=== PATIENT | female | born 1990 | race African-American/Black ===

== ENCOUNTER 2016-11-17 20:33 | Emergency (ER) | payer OTHER ==
[2016-11-17 21:11] VITALS: RESP 18
--- NOTE | 2016-11-17 22:32 | XR ---
EXAMINATION TYPE: XR chest 2V DATE OF EXAM: 11/17/2016 10:18 PM COMPARISON: 09/01/2010 HISTORY: Cough and congestion TECHNIQUE: Frontal and lateral views of the chest are obtained. FINDINGS: Heart and mediastinum are normal. Lungs are clear. Diaphragm is normal. Bony thorax and so ft tissues appear normal. IMPRESSION: Normal chest. No change.
[2016-11-17] MEDS ORDERED: AZITHROMYCIN 250 MG TAB PO STA (22:41)
--- NOTE | 2016-11-17 22:42 | ED ---
General Adult HPI - General Chief complaint: Upper Respiratory Infection Stated complaint: cough,vomiting Time Seen by Provider: 11/17/16 21:36 Source: patient, RN notes reviewed Mode of arrival: ambulatory - History of Present Illness Initial comments: This is a 26-year-old female with a come chief complaint of productive sounding cough. She had nausea vomiting and diarrhea yesterday. Denies fever. Denies pain. - Related Data Home Medications Medication Instructions Recorded Confirmed Pnv with Ca,No.72/Iron/FA [Pnv 1 tab PO DAILY 08/03/16 10/14/16 Plus Multivit Tab] Previous Rx's Medication Instructions Recorded Acetaminophen-Codeine 300-30mg 1 tab PO Q4H PRN #30 tablet 10/18/16 [Tylenol #3] Ibuprofen [Motrin] 600 mg PO Q6HR PRN #30 tab 10/18/16 Azithromycin [Zithromax Z-pack] 250 mg PO DIRECTED #6 tab 11/17/16 Allergies Allergy/AdvReac Type Severity Reaction Status Date / Time sulfamethoxazole Allergy Unknown Verified 11/17/16 21:11 [From Bactrim] trimethoprim [From Bactrim] Allergy Unknown Verified 11/17/16 21:11 Review of Systems ROS Statement: Those systems with pertinent positive or pertinent negative responses have been documented in the HPI. Review of systems. No headache or visual acuity changes she does have a productive sounding cough. No nausea vomiting stopped yesterday she has had one episode of diarrhea today. No skin rashes. No pain. All systems otherwise reviewed were negative. Past medical problems none. Surgery last month. Family history includes a sister with breast cancer and grandfather brain liver cancer. Uncle recently of another cancer of unknown type. Patient has ALLERGIES to sulfa drugs. She does smoke strongly encouraged to stop. Denies alcohol use ROS Other: All systems not noted in ROS Statement are negative. Past Medical History Past Medical History: No Reported History History of Any Multi-Drug Resistant Organisms: None Reported Additional Past Surgical History / Comment(s): cyst on wrist Past Psychological History: No Psychological Hx Reported Smoking Status: Current every day smoker Past Alcohol Use History: None Reported Past Drug Use History: None Reported - Past Family History Mother Family Medical History: No Reported History General Exam - General Exam Comments Initial Comments: General: The patient is awake and alert, raspy productive sounding cough. Vital signs temp 97.9 pulse 79 respiratory rate 18 pulse ox on percent room air blood pressure 110/80 Eye: Pupils are equal, round and reactive to light, extra-ocular movements are intact ; there is normal conjunctiva bilaterally. No signs of icterus. Ears, nose, mouth and throat: There are moist mucous membranes and no oral lesions. Neck: The neck is supple, there is no tenderness . Cardiovascular: There is a regular rate and rhythm. No murmur, rub or gallop is appreciated. Respiratory: Rough sounding lungs. Rare wheeze. No rales. Gastrointestinal: No abdominal or back pain. Musculoskeletal: Skin: Skin is warm and dry and no rashes or lesions are noted. Course Vital Signs 11/17/16 21:08 Temperature 97.9 F Pulse Rate 79 Respiratory 18 Rate Blood Pressure 110/80 O2 Sat by Pulse 100 Oximetry Medical Decision Making - Medical Decision Making The patient be placed on a Z-Sachin for her upper respiratory tractbronchitis. Told increase her fluids. And use Pepto-Bismol for loose stool. Disposition Clinical Impression: URI (upper respiratory infection) Disposition: HOME SELF-CARE Condition: Fair Instructions: Upper Respiratory Infection (ED) Additional Instructions: Increase fluids. Use Tylenol for fever or pain. Taking complete Z-Sachin until completed follow-up with family physician as needed Prescriptions: Azithromycin [Zithromax Z-pack] 250 mg PO DIRECTED #6 tab Time of Disposition: 22:42
[2016-11-17 22:43] VITALS: BP 126/62; PULSE 76; TEMP 98.3
== END 2016-11-17 23:20 | disposition home or self-care (01) ==
LOC: EC 20:33
DX: J06.9 Acute upper respiratory infection, unspecified (principal); R19.7 Diarrhea, unspecified; F17.200 Nicotine dependence, unspecified, uncomplicated; Z88.1 Allergy status to other antibiotic agents; Z88.2 Allergy status to sulfonamides
CPT/HCPCS: 71020; 99283

== ENCOUNTER 2019-03-09 23:48 | Emergency (ER) | payer OTHER ==
[2019-03-10 00:05] VITALS: RESP 18
[2019-03-10] MEDS ORDERED: SODIUM CHLORIDE 0.9% 1,000 ML IV STA (00:33)
[2019-03-10 00:45] LABS: Appearance,Urine Cloudy (Clear); Bacteria,Urine Rare /hpf; Bilirubin,Urine Negative (Negative); Blood,Urine Negative (Negative); Color,Urine Yellow; Glucose,Urine (UA) Negative (Negative); Ketones,Urine Negative (Negative); Leukocyte Esterase,Urine Large (Negative); Mucus,Urine Rare /hpf; Nitrite,Urine Negative (Negative); PH, Urine 5.5 (5.0-8.0); Protein,Urine Negative (Negative); RBC,Urine 5 /hpf (0-5); Specific Gravity,Urine 1.026 (1.001-1.035); Squamous Epithelial Cell,Urine 8 /hpf (0-4); Urobilinogen,Urine <2.0 mg/dL (<2.0); WBC,Urine 1 /hpf (0-5)
[2019-03-10 00:49] LABS: Basophils % (A) 0 %; Eosinophils # (A) 0.5 k/uL (0-0.7); Eosinophils % (A) 5 %; HCT 36.4 % (34.0-46.0); HGB 11.9 gm/dL (11.4-16.0); Lymphocytes # (A) 3.9 k/uL (1.0-4.8); Lymphocytes % (A) 40 %; MCH 28.4 pg (25.0-35.0); MCHC 32.8 g/dL (31.0-37.0); MCV 86.5 fL (80.0-100.0); Mean Platelet Volume 7.2; Monocytes # (A) 0.6 k/uL (0-1.0); Monocytes % (A) 6 %; Neutrophils # (A) 4.6 k/uL (1.3-7.7); Neutrophils % (A) 47 %; Platelet Count 283 k/uL (150-450); RDW 13.6 % (11.5-15.5); WBC 9.8 k/uL (3.8-10.6)
[2019-03-10 00:56] LABS: ALT 22 U/L (9-52); AST 21 U/L (14-36); Albumin 3.8 g/dL (3.5-5.0); Alkaline Phosphatase 51 U/L (38-126); Amylase 56 U/L (30-110); Anion Gap 4 mmol/L; Blood Urea Nitrogen 12 mg/dL (7-17); Calcium 9.6 mg/dL (8.4-10.2); Carbon Dioxide 25 mmol/L (22-30); Chloride 109 mmol/L (98-107); Glucose 78 mg/dL (74-99); Lipase 125 U/L (23-300); Potassium 4.1 mmol/L (3.5-5.1); Sodium 138 mmol/L (137-145); Total Bilirubin 0.2 mg/dL (0.2-1.3); Total Protein 6.9 g/dL (6.3-8.2)
--- NOTE | 2019-03-10 01:31 | ED ---
Abdominal Pain HPI - General Chief Complaint: Abdominal Pain Stated Complaint: Abd Pain Time Seen by Provider: 03/10/19 00:23 Source: patient Mode of arrival: ambulatory - History of Present Illness Initial Comments: 28-year-old female patient presents to the emergency department for evaluation of suprapubic abdominal discomfort, urinary frequency, and fatigue. She describes the pain in her abdomen as a mild cramping. She denies hematuria. Patient states she's had urinary tract infection the past and believes she may have another. She denies any fever, chills, nausea, vomiting, or flank pain. She denies any abnormal vaginal bleeding or discharge. Denies concern for sexu ally transmitted infections. She does not believe she is . She denies any constipation, diarrhea, hematochezia, melena, or hematemesis. Patient denies any recent rash, shortness breath, chest pain, back pain, numbness, tingling, dizziness, weakness, headache, visual changes, or any other complaints. - Related Data Home Medications Medication Instructions Recorded Confirmed Pnv,Calcium 72/Iron/Folic Acid 1 tab PO DAILY 08/03/16 10/14/16 [Pnv Plus Multivit Tab] Previous Rx's Medication Instructions Recorded Acetaminophen-Codeine 300-30mg 1 tab PO Q4H PRN #30 tablet 10/18/16 [Tylenol #3] Ibuprofen [Motrin] 600 mg PO Q6HR PRN #30 tab 10/18/16 Azithromycin [Zithromax Z-pack] 250 mg PO DIRECTED #6 tab 11/17/16 Cephalexin [Keflex] 500 mg PO Q6HR 3 Days #12 cap 03/10/19 Allergies Allergy/AdvReac Type Severity Reaction Status Date / Time sulfamethoxazole Allergy Unknown Verified 11/17/16 21:11 [From Bactrim] trimethoprim [From Bactrim] Allergy Unknown Verified 11/17/16 21:11 Review of Systems ROS Statement: Those systems with pertinent positive or pertinent negative responses have been documented in the HPI. ROS Other: All systems not noted in ROS Statement are negative. Past Medical History Past Medical History: No Reported History History of Any Multi-Drug Resistant Organisms: None Reported Past Surgical History: Section Additional Past Surgical History / Comment(s): cyst on wrist Past Psychological History: No Psychological Hx Reported Smoking Status: Current every day smoker Past Alcohol Use History: None Reported Past Drug Use History: None Reported - Past Family History Mother Family Medical History: No Reported History General Exam General appearance: alert, in no apparent distress, other (Physical well- developed, well-nourished adult female patient in no acute distress. Vital signs upon presentation are temperature 98.4F, pulse 88, respirations 18, blood pressure 126/78, pulse ox 98% on room air.) Eye exam: Present: normal appearance, PERRL, EOMI. Absent: scleral icterus, conjunctival injection, periorbital swelling ENT exam: Present: normal exam, normal oropharynx, mucous membranes moist Respiratory exam: Present: normal lung sounds bilaterally. Absent: respiratory distress, wheezes, rales, rhonchi, stridor Cardiovascular Exam: Present: regular rate, normal rhythm, normal heart sounds. Absent: systolic murmur, diastolic murmur, rubs, gallop, clicks GI/Abdominal exam: Present: soft, normal bowel sounds. Absent: distended, tenderness, guarding, rebound, rigid Back exam: Present: normal inspection. Absent: CVA tenderness (R), CVA tenderness (L) Neurological exam: Present: alert, oriented X3, CN II-XII intact Psychiatric exam: Present: normal affect, normal mood Skin exam: Present: warm, dry, intact, normal color. Absent: rash Course Vital Signs 03/10/19 03/10/19 00:00 01:45 Temperature 98.4 F 97.2 F L Pulse Rate 88 82 Respiratory 18 18 Rate Blood Pressure 126/78 123/60 O2 Sat by Pulse 98 99 Oximetry Medical Decision Making - Medical Decision Making 28-year-old female patient presents to the emergency department today for evaluation of suprapubic cramping, urinary frequency, and fatigue. Physical examination is relatively unremarkable. No abdominal tenderness, abdomen is soft. She is afebrile, vital signs. Labs reviewed and did reveal positive urinary test. She did have rare bacteria. I did discuss findings and results with the patient. Did discuss her symptoms are most likely related to . She'll be treated for asymptomatic bacteriuria. She is instructed to follow-up with her primary care physician for recheck in 1-2 days. She is instructed to follow-up with the PARKING TECHNICIAN for recheck as soon as possible. Return parameters were discussed in detail. She verbalizes understanding and agrees with this plan. - Lab Data Result diagrams: 03/10/19 00:34 03/10/19 00:34 Lab Results 03/10/19 03/10/19 03/10/19 Range/Units 00:23 00:23 00:34 WBC (3.8-10.6) k/uL RBC (3.80-5.40) m/uL Hgb (11.4-16.0) gm/dL Hct (34.0-46.0) % MCV (80.0-100.0) fL MCH (25.0-35.0) pg MCHC (31.0-37.0) g/dL RDW (11.5-15.5) % Plt Count (150-450) k/uL Neutrophils % % Lymphocytes % % Monocytes % % Eosinophils % % Basophils % % Neutrophils # (1.3-7.7) k/uL Lymphocytes # (1.0-4.8) k/uL Monocytes # (0-1.0) k/uL Eosinophils # (0-0.7) k/uL Basophils # (0-0.2) k/uL Sodium 138 (137-145) mmol/L Potassium 4.1 (3.5-5.1) mmol/L Chloride 109 H (98-107) mmol/L Carbon Dioxide 25 (22-30) mmol/L Anion Gap 4 mmol/L BUN 12 (7-17) mg/dL Creatinine 0.69 (0.52-1.04) mg/dL Est GFR (CKD-EPI)AfAm >90 (>60 ml/min/1.73 sqM) Est GFR (CKD-EPI)NonAf >90 (>60 ml/min/1.73 sqM) Glucose 78 (74-99) mg/dL Calcium 9.6 (8.4-10.2) mg/dL Total Bilirubin 0.2 (0.2-1.3) mg/dL AST 21 (14-36) U/L ALT 22 (9-52) U/L Alkaline Phosphatase 51 (38-126) U/L Total Protein 6.9 (6.3-8.2) g/dL Albumin 3.8 (3.5-5.0) g/dL Amylase 56 (30-110) U/L Lipase 125 (23-300) U/L Urine Color Yellow Urine Appearance Cloudy H (Clear) Urine pH 5.5 (5.0-8.0) Ur Specific [place] 1.026 (1.001-1.035) Urine Protein Negative (Negative) Urine Glucose (UA) Negative (Negative) Urine Ketones Negative (Negative) Urine Blood Negative (Negative) Urine Nitrite Negative (Negative) Urine Bilirubin Negative (Negative) Urine Urobilinogen <2.0 (<2.0) mg/dL Ur Leukocyte Esterase Large H (Negative) Urine RBC 5 (0-5) /hpf Urine WBC 1 (0-5) /hpf Ur Squamous Epith Cells 8 H (0-4) /hpf Urine Bacteria Rare H (None) /hpf Urine Mucus Rare H (None) /hpf Urine HCG, Qual Detected (Not Detectd) 03/10/19 Range/Units 00:34 WBC 9.8 (3.8-10.6) k/uL RBC 4.20 (3.80-5.40) m/uL Hgb 11.9 (11.4-16.0) gm/dL Hct 36.4 (34.0-46.0) % MCV 86.5 (80.0-100.0) fL MCH 28.4 (25.0-35.0) pg MCHC 32.8 (31.0-37.0) g/dL RDW 13.6 (11.5-15.5) % Plt Count 283 (150-450) k/uL Neutrophils % 47 % Lymphocytes % 40 % Monocytes % 6 % Eosinophils % 5 % Basophils % 0 % Neutrophils # 4.6 (1.3-7.7) k/uL Lymphocytes # 3.9 (1.0-4.8) k/uL Monocytes # 0.6 (0-1.0) k/uL Eosinophils # 0.5 (0-0.7) k/uL Basophils # 0.0 (0-0.2) k/uL Sodium (137-145) mmol/L Potassium (3.5-5.1) mmol/L Chloride (98-107) mmol/L Carbon Dioxide (22-30) mmol/L Anion Gap mmol/L BUN (7-17) mg/dL Creatinine (0.52-1.04) mg/dL Est GFR (CKD-EPI)AfAm (>60 ml/min/1.73 sqM) Est GFR (CKD-EPI)NonAf (>60 ml/min/1.73 sqM) Glucose (74-99) mg/dL Calcium (8.4-10.2) mg/dL Total Bilirubin (0.2-1.3) mg/dL AST (14-36) U/L ALT (9-52) U/L Alkaline Phosphatase (38-126) U/L Total Protein (6.3-8.2) g/dL Albumin (3.5-5.0) g/dL Amylase (30-110) U/L Lipase (23-300) U/L Urine Color Urine Appearance (Clear) Urine pH (5.0-8.0) Ur Specific [place] (1.001-1.035) Urine Protein (Negative) Urine Glucose (UA) (Negative) Urine Ketones (Negative) Urine Blood (Negative) Urine Nitrite (Negative) Urine Bilirubin (Negative) Urine Urobilinogen (<2.0) mg/dL Ur Leukocyte Esterase (Negative) Urine RBC (0-5) /hpf Urine WBC (0-5) /hpf Ur Squamous Epith Cells (0-4) /hpf Urine Bacteria (None) /hpf Urine Mucus (None) /hpf Urine HCG, Qual (Not Detectd) Disposition Clinical Impression: Early stage of , Asymptomatic bacteriuria Disposition: HOME SELF-CARE Condition: Good Instructions (If sedation given, give patient instructions): Abdominal Pain in (ED) Additional Instructions: Follow up with OBGYN as soon as possible. Return to the emergency department for any new, worsening, or concerning symptoms. Prescriptions: Cephalexin [Keflex] 500 mg PO Q6HR 3 Days #12 cap Is patient prescribed a controlled substance at d/c from ED?: No Referrals: None,Stated [Primary Care Provider] - 1-2 days Time of Disposition: 01:30
[2019-03-10] MEDS ORDERED: CEPHALEXIN 500MG STARTER PACK 4 CAP BTL PO STA (01:40)
[2019-03-10 01:48] VITALS: BP 123/60; PULSE 82; TEMP 97.2
== END 2019-03-10 01:50 | disposition home or self-care (01) ==
LOC: EC 23:48
DX: O23.90 Unspecified genitourinary tract infection in pregnancy, unspecified trimester (principal); R82.71 Bacteriuria; O99.330 Smoking (tobacco) complicating pregnancy, unspecified trimester; F17.200 Nicotine dependence, unspecified, uncomplicated; Z3A.00 Weeks of gestation of pregnancy not specified; Z88.1 Allergy status to other antibiotic agents; Z88.2 Allergy status to sulfonamides
CPT/HCPCS: 36415; 80053; 81001; 81025; 82150; 83690; 85025; 96360; 99284

== ENCOUNTER 2019-03-15 17:52 | Emergency (ER) | payer OTHER ==
[2019-03-15 19:01] LABS: Appearance,Urine Clear (Clear); Bilirubin,Urine Negative (Negative); Blood,Urine Small (Negative); Color,Urine Yellow; Glucose,Urine (UA) Negative (Negative); Ketones,Urine Negative (Negative); Leukocyte Esterase,Urine Negative (Negative); Mucus,Urine Rare /hpf; Nitrite,Urine Negative (Negative); Protein,Urine Negative (Negative); Specific Gravity,Urine 1.019 (1.001-1.035); Squamous Epithelial Cell,Urine 1 /hpf (0-4); Urobilinogen,Urine <2.0 mg/dL (<2.0); WBC,Urine 2 /hpf (0-5)
[2019-03-15 19:03] LABS: Basophils % (A) 0 %; Eosinophils # (A) 0.3 k/uL (0-0.7); Eosinophils % (A) 4 %; HCT 36.5 % (34.0-46.0); HGB 11.8 gm/dL (11.4-16.0); Lymphocytes % (A) 37 %; MCHC 32.4 g/dL (31.0-37.0); MCV 86.3 fL (80.0-100.0); Monocytes # (A) 0.5 k/uL (0-1.0); Monocytes % (A) 7 %; Neutrophils # (A) 4.1 k/uL (1.3-7.7); Neutrophils % (A) 49 %; Platelet Count 338 k/uL (150-450); RBC 4.23 m/uL (3.80-5.40); RDW 14.1 % (11.5-15.5); WBC 8.3 k/uL (3.8-10.6)
[2019-03-15 19:04] LABS: ALT 26 U/L (9-52); AST 20 U/L (14-36); Albumin 3.7 g/dL (3.5-5.0); Alkaline Phosphatase 45 U/L (38-126); Anion Gap 7 mmol/L; Blood Urea Nitrogen 12 mg/dL (7-17); Calcium 9.3 mg/dL (8.4-10.2); Carbon Dioxide 22 mmol/L (22-30); Chloride 109 mmol/L (98-107); Glucose 84 mg/dL (74-99); Potassium 4.5 mmol/L (3.5-5.1); Sodium 138 mmol/L (137-145); Total Bilirubin 0.3 mg/dL (0.2-1.3); Total Protein 6.8 g/dL (6.3-8.2)
--- NOTE | 2019-03-15 19:14 | ED ---
Abdominal Pain HPI - General Chief Complaint: Abdominal Pain Stated Complaint: 7 wks preg/vaginal bleeding Time Seen by Provider: 03/15/19 18:09 Source: patient, RN notes reviewed, old records reviewed Mode of arrival: ambulatory Limitations: no limitations - History of Present Illness Initial Comments: Patient is a 28-year-old female who presents emergency department today for evaluation for possible miscarriage. Patient started to have vaginal bleeding today after having intercourse. Patient states that it was a significant amount of blood at that time. Patient states that she is a 1 female. Her OUTSIDE PLANT TECHNICIAN is Dr. Henderson. She states she is approximately 7 weeks . She states she found she was when she came to the ER for abdominal pain 3 days ago. Patient states that she has some upper discomfort and cramping but denies any lower quadrant pain. Patient states that she has had no changes in urination or bowel habits. - Related Data Home Medications Medication Instructions Recorded Confirmed Cephalexin [Keflex] 500 mg PO TID 03/15/19 03/15/19 Allergies Allergy/AdvReac Type Severity Reaction Status Date / Time sulfamethoxazole Allergy Unknown Verified 03/15/19 18:10 [From Bactrim] trimethoprim [From Bactrim] Allergy Unknown Verified 03/15/19 18:10 Review of Systems ROS Statement: Those systems with pertinent positive or pertinent negative responses have been documented in the HPI. ROS Other: All systems not noted in ROS Statement are negative. Past Medical History Past Medical History: No Reported History History of Any Multi-Drug Resistant Organisms: None Reported Past Surgical History: Section Additional Past Surgical History / Comment(s): cyst on wrist Past Psychological History: No Psychological Hx Reported Smoking Status: Current every day smoker Past Alcohol Use History: None Reported Past Drug Use History: None Reported - Past Family History Mother Family Medical History: No Reported History General Exam - General Exam Comments Initial Comments: Pleasant 28-year-old female. Alert and oriented. No distress. Limitations: no limitations General appearance: alert, in no apparent distress Head exam: Present: atraumatic, normocephalic, normal inspection Eye exam: Present: normal appearance, PERRL, EOMI. Absent: scleral icterus, conjunctival injection, periorbital swelling ENT exam: Present: normal exam, mucous membranes moist Neck exam: Present: normal inspection. Absent: tenderness, meningismus, lymphadenopathy Respiratory exam: Present: normal lung sounds bilaterally. Absent: respiratory distress, wheezes, rales, rhonchi, stridor Cardiovascular Exam: Present: regular rate, normal rhythm, normal heart sounds. Absent: systolic murmur, diastolic murmur, rubs, gallop, clicks GI/Abdominal exam: Present: soft, normal bowel sounds. Absent: distended, tend erness, guarding, rebound, rigid External exam: Present: normal external exam Speculum exam: Present: normal speculum exam, vaginal bleeding (Dry vaginal blood). Absent: cervical discharge By manual exam: Present: normal by manual exam. Absent: cervical motion tenderness, adnexal tenderness Extremities exam: Present: normal inspection, full ROM, normal capillary refill. Absent: tenderness, pedal edema, joint swelling, calf tenderness Back exam: Present: normal inspection Neurological exam: Present: alert, oriented X3, CN II-XII intact Psychiatric exam: Present: normal affect, normal mood Skin exam: Present: warm, dry, intact, normal color. Absent: rash Course Vital Signs 03/15/19 17:58 Temperature 98.1 F Pulse Rate 83 Respiratory 18 Rate Blood Pressure 105/70 O2 Sat by Pulse 99 Oximetry Medical Decision Making - Medical Decision Making 28-year-old female female proximally 7 weeks based on last nausea. Presents today for vaginal bleeding after intercourse. Patient's ultrasound shows single live intrauterine gestation. Patient's Rh is positive. She is AB+ blood type. Pelvic exam did show some minimal dry blood. Discussed that symptoms are likely due to recent intercourse. Discussed that she should have pelvic rest and follow-up with her OUTSIDE PLANT TECHNICIAN. All questions answered and return parameters were discussed. Started on prenatals. - Lab Data Result diagrams: 03/15/19 18:34 03/15/19 18:34 Lab Results 03/15/19 03/15/19 03/15/19 Range/Units 18:34 18:34 18:34 WBC 8.3 (3.8-10.6) k/uL RBC 4.23 (3.80-5.40) m/uL Hgb 11.8 (11.4-16.0) gm/dL Hct 36.5 (34.0-46.0) % MCV 86.3 (80.0-100.0) fL MCH 28.0 (25.0-35.0) pg MCHC 32.4 (31.0-37.0) g/dL RDW 14.1 (11.5-15.5) % Plt Count 338 (150-450) k/uL Neutrophils % 49 % Lymphocytes % 37 % Monocytes % 7 % Eosinophils % 4 % Basophils % 0 % Neutrophils # 4.1 (1.3-7.7) k/uL Lymphocytes # 3.0 (1.0-4.8) k/uL Monocytes # 0.5 (0-1.0) k/uL Eosinophils # 0.3 (0-0.7) k/uL Basophils # 0.0 (0-0.2) k/uL PT (9.0-12.0) sec INR (<1.2) APTT (22.0-30.0) sec Sodium 138 (137-145) mmol/L Potassium 4.5 (3.5-5.1) mmol/L Chloride 109 H (98-107) mmol/L Carbon Dioxide 22 (22-30) mmol/L Anion Gap 7 mmol/L BUN 12 (7-17) mg/dL Creatinine 0.63 (0.52-1.04) mg/dL Est GFR (CKD-EPI)AfAm >90 (>60 ml/min/1.73 sqM) Est GFR (CKD-EPI)NonAf >90 (>60 ml/min/1.73 sqM) Glucose 84 (74-99) mg/dL Calcium 9.3 (8.4-10.2) mg/dL Total Bilirubin 0.3 (0.2-1.3) mg/dL AST 20 (14-36) U/L ALT 26 (9-52) U/L Alkaline Phosphatase 45 (38-126) U/L Total Protein 6.8 (6.3-8.2) g/dL Albumin 3.7 (3.5-5.0) g/dL Urine Color Urine Appearance (Clear) Urine pH (5.0-8.0) Ur Specific [place] (1.001-1.035) Urine Protein (Negative) Urine Glucose (UA) (Negative) Urine Ketones (Negative) Urine Blood (Negative) Urine Nitrite (Negative) Urine Bilirubin (Negative) Urine Urobilinogen (<2.0) mg/dL Ur Leukocyte Esterase (Negative) Urine WBC (0-5) /hpf Ur Squamous Epith Cells (0-4) /hpf Urine Mucus (None) /hpf Urine HCG, Qual (Not Detectd) Blood Type B Positive Blood Type Recheck No 03/15/19 03/15/19 03/15/19 Range/Units 18:34 18:34 18:34 WBC (3.8-10.6) k/uL RBC (3.80-5.40) m/uL Hgb (11.4-16.0) gm/dL Hct (34.0-46.0) % MCV (80.0-100.0) fL MCH (25.0-35.0) pg MCHC (31.0-37.0) g/dL RDW (11.5-15.5) % Plt Count (150-450) k/uL Neutrophils % % Lymphocytes % % Monocytes % % Eosinophils % % Basophils % % Neutrophils # (1.3-7.7) k/uL Lymphocytes # (1.0-4.8) k/uL Monocytes # (0-1.0) k/uL Eosinophils # (0-0.7) k/uL Basophils # (0-0.2) k/uL PT 9.8 (9.0-12.0) sec INR 0.9 (<1.2) APTT 24.4 (22.0-30.0) sec Sodium (137-145) mmol/L Potassium (3.5-5.1) mmol/L Chloride (98-107) mmol/L Carbon Dioxide (22-30) mmol/L Anion Gap mmol/L BUN (7-17) mg/dL Creatinine (0.52-1.04) mg/dL Est GFR (CKD-EPI)AfAm (>60 ml/min/1.73 sqM) Est GFR (CKD-EPI)NonAf (>60 ml/min/1.73 sqM) Glucose (74-99) mg/dL Calcium (8.4-10.2) mg/dL Total Bilirubin (0.2-1.3) mg/dL AST (14-36) U/L ALT (9-52) U/L Alkaline Phosphatase (38-126) U/L Total Protein (6.3-8.2) g/dL Albumin (3.5-5.0) g/dL Urine Color Yellow Urine Appearance Clear (Clear) Urine pH 6.0 (5.0-8.0) Ur Specific [place] 1.019 (1.001-1.035) Urine Protein Negative (Negative) Urine Glucose (UA) Negative (Negative) Urine Ketones Negative (Negative) Urine Blood Small H (Negative) Urine Nitrite Negative (Negative) Urine Bilirubin Negative (Negative) Urine Urobilinogen <2.0 (<2.0) mg/dL Ur Leukocyte Esterase Negative (Negative) Urine WBC 2 (0-5) /hpf Ur Squamous Epith Cells 1 (0-4) /hpf Urine Mucus Rare H (None) /hpf Urine HCG, Qual Detected (Not Detectd) Blood Type Blood Type Recheck - Radiology Data Single live intrauterine gestation as confirmed being crown-rump length is 0.5 cm corresponding with 6 weeks and 1 day old fetus. Disposition Clinical Impression: Vaginal bleeding during Disposition: HOME SELF-CARE Condition: Good Instructions (If sedation given, give patient instructions): Threatened Miscarriage (ED) Additional Instructions: Patient advised to follow-up with your primary care physician and OUTSIDE PLANT TECHNICIAN. Patient should've pelvic rest, no intercourse. Return to emergency department if any alarming signs or symptoms occur. Is patient prescribed a controlled substance at d/c from ED?: No Referrals: None,Stated [Primary Care Provider] - 1-2 days Saman Rojas DO [Doctor of Osteopathic Medicine] - 1-2 days Time of Disposition: 19:53
[2019-03-15 19:30] LABS: INR 0.9 (<1.2); Partial Thromboplastin Time 24.4 sec (22.0-30.0); Prothrombin Time 9.8 sec (9.0-12.0)
--- NOTE | 2019-03-15 19:36 | US ---
EXAMINATION TYPE: Transabdominal DATE OF EXAM: 03/15/2019 7:23 PM COMPARISON: NONE CLINICAL HISTORY: pain. Cramping and bleeding. Positive beta-hCG test. EXAM PERFORMED: Transvaginal (TV) and Transabdominal (TA) EXAM MEASUREMENTS: GESTATIONAL AGE / DATING Physician Established: Not yet established ( weeks Dates by LMP: (5 weeks/6 days) EDC: 11/09/2019 Dates by First Scan: No previous this is first scan Dates by Current Scan for: (6 weeks/1 days) EDC: 11/07/2019 MATERNAL ANATOMY Uterus: 8.2 x 5.2 x 7.3 cm Right Ovary: 2.5 x 2.0 x 1.9cm Left Ovary: Obscured by bowel gas. Post CDS / Adnexa: wnl Presence of free fluid: yes Presence of corpus luteal cyst: yes right 2.1 x 1.3 x 1.3cm Presence of subchorionic bleed: no GESTATION / SURVEY CRL: 0.48cm (6 weeks/1 days) Yolk Sac (normal less than 6mm): 3mm Heart Rate: 129 bpm Rhythm: Normal IUP: Viable IUP Beta HcG (if available): Not available at this time Single live intrauterine gestation is present as gestational sac, yolk sac, and pole are seen. No free fluid is seen in pelvic cul-de-sac. Right ovary is seen. Left ovary is not clearly identified. Within right ovary there is 2.1 cm rim hyp ervascular oval lesion felt to reflect corpus luteal cyst. No extraovarian adnexal masses are present . IMPRESSION: Single live intrauterine gestation is confirmed, mean crown-rump length is 0.5 cm corresponding to 6 week 1 day old fetus.
[2019-03-15 19:58] LABS: HCG,Quantitative Serum 25007.8 mIU/mL
[2019-03-15 20:27] VITALS: BP 112/58; PULSE 76; RESP 20; TEMP 100.1
[2019-03-16 16:06] LABS: C. trachomatis,PCR Negative (Neg,Equiv); Chlamydia trachomatis Source Vagina
[2019-03-16 16:09] LABS: N. gonorrhoeae,PCR Negative (Neg,Equiv); Neisseria Source Vagina
== END 2019-03-15 20:27 | disposition home or self-care (01) ==
LOC: EC 17:52
DX: O20.9 Hemorrhage in early pregnancy, unspecified (principal); O99.331 Smoking (tobacco) complicating pregnancy, first trimester; F17.200 Nicotine dependence, unspecified, uncomplicated; Z3A.01 Less than 8 weeks gestation of pregnancy; Z88.1 Allergy status to other antibiotic agents; Z88.2 Allergy status to sulfonamides
CPT/HCPCS: 36415; 76801; 76817; 80053; 81001; 81025; 84702; 85025; 85610; 85730; 86900; 86901; 87070; 87205; 87491; 87591; 87808; 99284

== ENCOUNTER → 2019-03-19 | Outpatient (CLI) | payer SELFPAY | END | disposition home or self-care (01) | LOC: LABWHC1 17:19 | PROVIDERS: ATTEND Physician Assistant Medical | DX: O20.0 Threatened abortion (principal) | CPT/HCPCS: 36415; 84702 ==

== ENCOUNTER 2019-03-24 19:45 | Emergency (ER) | payer OTHER ==
[2019-03-24 19:54] VITALS: RESP 18
[2019-03-24] MEDS ORDERED: SODIUM CHLORIDE 0.9% 500 ML 500 ML IV ONE (19:59)
[2019-03-24 21:15] LABS: Basophils % (A) 0 %; Eosinophils # (A) 0.4 k/uL (0-0.7); Eosinophils % (A) 4 %; HGB 11.6 gm/dL (11.4-16.0); Lymphocytes # (A) 3.3 k/uL (1.0-4.8); Lymphocytes % (A) 32 %; MCHC 33.1 g/dL (31.0-37.0); MCV 87.6 fL (80.0-100.0); Mean Platelet Volume 6.8; Monocytes # (A) 0.8 k/uL (0-1.0); Monocytes % (A) 8 %; Neutrophils # (A) 5.6 k/uL (1.3-7.7); Neutrophils % (A) 54 %; Platelet Count 352 k/uL (150-450); RBC 3.99 m/uL (3.80-5.40); RDW 13.4 % (11.5-15.5); WBC 10.4 k/uL (3.8-10.6)
[2019-03-24 21:26] LABS: ALT 24 U/L (9-52); AST 18 U/L (14-36); Albumin 3.7 g/dL (3.5-5.0); Alkaline Phosphatase 52 U/L (38-126); Anion Gap 7 mmol/L; Blood Urea Nitrogen 12 mg/dL (7-17); Calcium 9.6 mg/dL (8.4-10.2); Carbon Dioxide 26 mmol/L (22-30); Chloride 104 mmol/L (98-107); Glucose 66 mg/dL (74-99); Potassium 4.2 mmol/L (3.5-5.1); Sodium 137 mmol/L (137-145); Total Bilirubin 0.3 mg/dL (0.2-1.3)
--- NOTE | 2019-03-24 21:47 | US ---
EXAMINATION TYPE: Transabdominal DATE OF EXAM: 03/24/2019 9:34 PM COMPARISON: NONE CLINICAL HISTORY: pain. Spotting. EXAM PERFORMED: Transvaginal (TV) and Transabdominal (TA) EXAM MEASUREMENTS: GESTATIONAL AGE / DATING Physician Established: (7 weeks/3 days) EDC: 11/07/2019 Dates by LMP: (7 weeks/3 days) EDC: 11/07/2019 Dates by First Scan: (6 weeks/1 days) EDC: 11/07/2019 Dates by Current Scan for: (7 weeks/0 days) EDC: 11/10/2019 MATERNAL ANATOMY Uterus: 11.5 x 5.5 x 7.3 cm Right Ovary: 2.7 x 1.6 x 3.0 cm Left Ovary: 3.0 x 2.8 x 2.5 cm Post CDS / Adnexa: wnl Presence of free fluid: no Presence of corpus luteal cyst: Yes left 2.0 x 2.0 x 1.8cm. Presence of subchorionic bleed: no GESTATION / SURVEY CRL: 0.98cm (7 weeks/0 days) Yolk Sac (normal less than 6mm): 3mm Heart Rate: 148 bpm Rhythm: Normal IUP: Viable IUP Beta HcG (if available): Not available at this time IMPRESSION: Ultrasound gestational age is 7 weeks. No complicating process seen.
--- NOTE | 2019-03-24 21:56 | ED ---
Abdominal Pain HPI - General Chief Complaint: Abdominal Pain Stated Complaint: Abd Pain,Vaginal Bleeding-7 wks Time Seen by Provider: 03/24/19 19:52 Source: patient Mode of arrival: ambulatory Limitations: no limitations - History of Present Illness Initial Comments: 28-year-old female presenting today for chief complaint of vaginal bleeding in . Patient states she is 7 weeks with an upcoming appointment April 07 with her UTILITIES SERVICE INVESTIGATOR. Patient states she has a history of bleeding with this with intercourse. She states she is on pelvic rest. Patient states that today 30 minutes prior to arrival she had light spotting. Patient states she has had some mild abdominal cramping. Patient was concerned and presented for evaluation. Patient denies sexual intercourse today. Patient denies any severe abdominal pain she denies nausea vomiting diarrhea dysuria urgency frequency fever or chills night sweats. Remaining review of systems negative. Upon arrival patient appears wellas acute distress. - Related Data Home Medications Medication Instructions Recorded Confirmed Cephalexin [Keflex] 500 mg PO TID 03/15/19 03/24/19 Allergies Allergy/AdvReac Type Severity Reaction Status Date / Time sulfamethoxazole Allergy Unknown Verified 03/24/19 20:19 [From Bactrim] trimethoprim [From Bactrim] Allergy Unknown Verified 03/24/19 20:19 Review of Systems ROS Statement: Those systems with pertinent positive or pertinent negative responses have been documented in the HPI. ROS Other: All systems not noted in ROS Statement are negative. Past Medical History Past Medical History: No Reported History History of Any Multi-Drug Resistant Organisms: None Reported Past Surgical History: Section Additional Past Surgical History / Comment(s): cyst on wrist, Past Psychological History: No Psychological Hx Reported Smoking Status: Current every day smoker Past Alcohol Use History: None Reported Past Drug Use History: None Reported - Past Family History Mother Family Medical History: No Reported History General Exam - General Exam Comments Initial Comments: General: The patient is awake and alert, in no distress, and does not appear acutely ill. Eye: Pupils are equal, round and reactive to light, extra-ocular movements are intact. No nystagmus. There is normal conjunctiva bilaterally. No signs of icterus. Ears, nose, mouth and throat: There are moist mucous membranes and no oral lesions. Neck: The neck is supple, there is no tenderness or JVD. Cardiovascular: There is a regular rate and rhythm. No murmur, rub or gallop is appreciated. Respiratory: Lungs are clear to auscultation, respirations are non-labored, breath sounds are equal. No wheezes, stridor, rales, or rhonchi Gastrointestinal: Soft, non-distended, non-tender abdomen without masses or organomegaly noted. There is no rebound or guarding present. No CVA tenderness. Bowel sounds are unremarkable. Musculoskeletal: Normal ROM, no tenderness. Strength 5/5. Sensation intact. Pulses equal bilaterally 2+. Neurological: A&O x 3. CN II-XII intact, There are no obvious motor or sensory deficits. Coordination appears grossly intact. Speech is normal. Skin: Skin is warm and dry and no rashes or lesions are noted. Psychiatric: Cooperative, appropriate mood & affect, normal judgment. Limitations: no limitations Course Vital Signs 03/24/19 03/24/19 19:50 22:25 Temperature 99.4 F 98.2 F Pulse Rate 87 77 Respiratory 18 18 Rate Blood Pressure 107/62 123/64 O2 Sat by Pulse 100 110 H Oximetry Medical Decision Making - Medical Decision Making 28-year-old female presenting today for chief complaint of spotting in . Ultrasound revealed viable intrauterine without couple getting process. B+ blood type, no Rhogam indicated. Pt has no pain on exam. Appearing well, hemodynamically stable. Patient states bleeding has subsided. At this time patient most likely has threatened . Patient is to follow- up with UTILITIES SERVICE INVESTIGATOR as scheduled. Return for heavy vaginal bleeding patient is agreeable plan of care as well as discharge. Discussed case attending provider who is agreeable with plan. - Lab Data Result diagrams: 03/24/19 20:45 03/24/19 20:45 Lab Results 03/24/19 03/24/19 03/24/19 Range/Units 20:45 20:45 20:45 WBC 10.4 (3.8-10.6) k/uL RBC 3.99 (3.80-5.40) m/uL Hgb 11.6 (11.4-16.0) gm/dL Hct 35.0 (34.0-46.0) % MCV 87.6 (80.0-100.0) fL MCH 29.0 (25.0-35.0) pg MCHC 33.1 (31.0-37.0) g/dL RDW 13.4 (11.5-15.5) % Plt Count 352 (150-450) k/uL Neutrophils % 54 % Lymphocytes % 32 % Monocytes % 8 % Eosinophils % 4 % Basophils % 0 % Neutrophils # 5.6 (1.3-7.7) k/uL Lymphocytes # 3.3 (1.0-4.8) k/uL Monocytes # 0.8 (0-1.0) k/uL Eosinophils # 0.4 (0-0.7) k/uL Basophils # 0.0 (0-0.2) k/uL Sodium 137 (137-145) mmol/L Potassium 4.2 (3.5-5.1) mmol/L Chloride 104 (98-107) mmol/L Carbon Dioxide 26 (22-30) mmol/L Anion Gap 7 mmol/L BUN 12 (7-17) mg/dL Creatinine 0.61 (0.52-1.04) mg/dL Est GFR (CKD-EPI)AfAm >90 (>60 ml/min/1.73 sqM) Est GFR (CKD-EPI)NonAf >90 (>60 ml/min/1.73 sqM) Glucose 66 L (74-99) mg/dL Calcium 9.6 (8.4-10.2) mg/dL Total Bilirubin 0.3 (0.2-1.3) mg/dL AST 18 (14-36) U/L ALT 24 (9-52) U/L Alkaline Phosphatase 52 (38-126) U/L Total Protein 7.0 (6.3-8.2) g/dL Albumin 3.7 (3.5-5.0) g/dL HCG, Quant 25002.7 mIU/mL Blood Type B Positive Blood Type Recheck ABR ONLY Disposition Clinical Impression: Spotting affecting in first trimester Disposition: HOME SELF-CARE Condition: Good Instructions (If sedation given, give patient instructions): Threatened Miscarriage (ED) Additional Instructions: Please use medication as discussed. Please follow-up with OBGYN as scheduled on 04/07/19. Please return to emergency room if the symptoms increase or worsen or for any other concerns. Is patient prescribed a controlled substance at d/c from ED?: No Referrals: Jean Paul June MD [Primary Care Provider] - 1-2 days Saman Rojas DO [Doctor of Osteopathic Medicine] - 1-2 days Time of Disposition: 21:55
[2019-03-24 22:10] LABS: HCG,Quantitative Serum 66079.7 mIU/mL
[2019-03-24 22:28] VITALS: BP 123/64; PULSE 77; TEMP 98.2
== END 2019-03-24 22:25 | disposition home or self-care (01) ==
LOC: EC 19:45
DX: O26.851 Spotting complicating pregnancy, first trimester (principal); Z67.20 Type B blood, Rh positive; O99.331 Smoking (tobacco) complicating pregnancy, first trimester; F17.200 Nicotine dependence, unspecified, uncomplicated; Z88.2 Allergy status to sulfonamides; Z98.890 Other specified postprocedural states; Z3A.01 Less than 8 weeks gestation of pregnancy
CPT/HCPCS: 36415; 76801; 76817; 80053; 84702; 85025; 86900; 86901; 99284

== ENCOUNTER 2019-05-23 22:53 | Emergency (ER) | payer OTHER ==
[2019-05-23 22:57] VITALS: BP 124/79; PULSE 101; RESP 20; TEMP 99.3
--- NOTE | 2019-05-23 23:04 | ED ---
Female Urogenital HPI - General Chief complaint: Abdominal Pain Stated complaint: Back/Abd Pain, pgt Time Seen by Provider: 05/23/19 23:02 Source: patient, RN notes reviewed, old records reviewed Mode of arrival: ambulatory Limitations: no limitations - History of Present Illness Initial comments: This is a 28-year-old female the ER for evaluation. Patient resents today for evaluation of back pain abdominal pain. Patient concern for urinary tract infection, patient states she believes she may have UTI from sex with her . Patient has mild nausea no vomiting. No fevers. MD Complaint: pelvic pain -: hour(s) Radiation: non-radiating, suprapubic Severity: mild Consistency: constant Improves with: none Worsens with: none Patient : Yes Associated Symptoms: denies other symptoms - Related Data Home Medications Medication Instructions Recorded Confirmed Pua-Fvxu-Mynei Acid 1 cap PO DAILY 05/23/19 05/23/19 [-U Capsule (formulary)] Allergies Allergy/AdvReac Type Severity Reaction Status Date / Time sulfamethoxazole Allergy Nausea & Verified 05/23/19 23:17 [From Bactrim] Vomiting trimethoprim [From Bactrim] Allergy Nausea & Verified 05/23/19 23:17 Vomiting Review of Systems ROS Statement: Those systems with pertinent positive or pertinent negative responses have been documented in the HPI. ROS Other: All systems not noted in ROS Statement are negative. Past Medical History Past Medical History: No Reported History History of Any Multi-Drug Resistant Organisms: None Reported Past Surgical History: Section Additional Past Surgical History / Comment(s): cyst on wrist, Past Psychological History: No Psychological Hx Reported Smoking Status: Current every day smoker Past Alcohol Use History: None Reported Past Drug Use History: None Reported - Past Family History Mother Family Medical History: No Reported History General Exam Limitations: no limitations General appearance: alert, in no apparent distress Head exam: Present: atraumatic, normocephalic, normal inspection Eye exam: Present: normal appearance, PERRL, EOMI. Absent: scleral icterus, conjunctival injection, periorbital swelling ENT exam: Present: normal exam, mucous membranes moist Neck exam: Present: normal inspection. Absent: tenderness, meningismus, lymphadenopathy Respiratory exam: Present: normal lung sounds bilaterally. Absent: respiratory distress, wheezes, rales, rhonchi, stridor Cardiovascular Exam: Present: regular rate, normal rhythm, normal heart sounds. Absent: systolic murmur, diastolic murmur, rubs, gallop, clicks GI/Abdominal exam: Present: soft, normal bowel sounds. Absent: distended, tenderness, guarding, rebound, rigid Extremities exam: Present: normal inspection, full ROM, normal capillary refill. Absent: tenderness, pedal edema, joint swelling, calf tenderness Back exam: Present: normal inspection Neurological exam: Present: alert, oriented X3, CN II-XII intact Psychiatric exam: Present: normal affect, normal mood Skin exam: Present: warm, dry, intact, normal color. Absent: rash Course Vital Signs 05/23/19 22:54 Temperature 99.3 F Pulse Rate 101 H Respiratory 20 Rate Blood Pressure 124/79 O2 Sat by Pulse 100 Oximetry - Reevaluation(s) Reevaluation #1: 05/24/19 00:18 Medical record is reviewed with Reevaluation #2: 05/24/19 00:18 Patient is in no acute distress Medical Decision Making - Medical Decision Making 28 female the ER for evaluation patient was essay for evaluation regarding abdominal pain. Urine is negative ultrasound is negative patient's feeling well. - Lab Data Lab Results 05/23/19 Range/Units 23:04 Urine Color Yellow Urine Appearance Cloudy H (Clear) Urine pH 7.0 (5.0-8.0) Ur Specific [place] 1.027 (1.001-1.035) Urine Protein Trace H (Negative) Urine Glucose (UA) Negative (Negative) Urine Ketones Negative (Negative) Urine Blood Negative (Negative) Urine Nitrite Negative (Negative) Urine Bilirubin Negative (Negative) Urine Urobilinogen 2.0 (<2.0) mg/dL Ur Leukocyte Esterase Large H (Negative) Urine RBC 3 (0-5) /hpf Urine WBC 12 H (0-5) /hpf Ur Squamous Epith Cells 24 H (0-4) /hpf Urine Bacteria Occasional H (None) /hpf Hyaline Casts 4 H (0-2) /lpf Urine Mucus Rare H (None) /hpf Disposition Clinical Impression: Abdominal pain Disposition: HOME SELF-CARE Condition: Good Instructions (If sedation given, give patient instructions): Abdominal Pain in (ED) Is patient prescribed a controlled substance at d/c from ED?: No Referrals: None,Stated [Primary Care Provider] - 1-2 days
[2019-05-23 23:23] LABS: Appearance,Urine Cloudy (Clear); Bacteria,Urine Occasional /hpf; Bilirubin,Urine Negative (Negative); Blood,Urine Negative (Negative); Color,Urine Yellow; Glucose,Urine (UA) Negative (Negative); Hyaline Casts,Urine 4 /lpf (0-2); Ketones,Urine Negative (Negative); Leukocyte Esterase,Urine Large (Negative); Mucus,Urine Rare /hpf; Nitrite,Urine Negative (Negative); Protein,Urine Trace (Negative); RBC,Urine 3 /hpf (0-5); Specific Gravity,Urine 1.027 (1.001-1.035); Squamous Epithelial Cell,Urine 24 /hpf (0-4); WBC,Urine 12 /hpf (0-5)
[2019-05-23] MEDS ORDERED: PYRIDOXINE 50 MG TAB PO STA (23:33)
[2019-05-23] MEDS ORDERED: diphenhydrAMINE 50 MG CAP PO STA (23:33)
[2019-05-23] MEDS ORDERED: ACETAMINOPHEN TAB 500 MG TAB PO STA (23:33)
--- NOTE | 2019-05-24 00:31 | US ---
EXAM: US After First Trimester, Transabdominal CLINICAL HISTORY: ITS.REASON US Reason: Pain TECHNIQUE: Real-time transabdominal obstetrical ultrasound of the maternal pelvis and a second or third trimester with image documentation. COMPARISON: No relevant prior studies available. FINDINGS: Dates by Current Scan: (15 weeks/6 days) EDC: 11/08/2019 SURVEY IUP: Single PLACENTA: Anterior BRENDA: 13.0 cm CERVICAL LENGTH: 3.9 cm BIOMETRY PRESENTATION: Breech BPD: 3.2 cm 15 weeks / 6 days HC: 12.0 cm 16 weeks / 0 days AC: 9.4 cm 15 weeks / 4 days FL: 1.9 cm 15 weeks / 5 days ESTIMATED WEIGHT IN GRAMS: 131.2 grams ESTIMATED WEIGHT IN LBS/OZ: 0 lbs. 5 oz. WEIGHT PERCENTAGE BASED ON ESTABLISHED DATES: 46% HC/AC: 1.28 FL/AC: 20 HEART RATE: 157 bpm IMPRESSION: Single live intrauterine measuring 15 weeks 6 days.
[2019-05-26 15:17] LABS: C. trachomatis,PCR Negative (Neg,Equiv); Chlamydia trachomatis Source Urine
[2019-05-26 15:22] LABS: N. gonorrhoeae,PCR Negative (Neg,Equiv); Neisseria Source Urine
== END 2019-05-24 00:33 | disposition home or self-care (01) ==
LOC: EC 22:53
DX: O99.89 Other specified diseases and conditions complicating pregnancy, childbirth and the puerperium (principal); R10.2 Pelvic and perineal pain; M54.9 Dorsalgia, unspecified; R11.0 Nausea; O99.332 Smoking (tobacco) complicating pregnancy, second trimester; F17.200 Nicotine dependence, unspecified, uncomplicated; Z3A.15 15 weeks gestation of pregnancy; Z88.1 Allergy status to other antibiotic agents; Z88.2 Allergy status to sulfonamides
CPT/HCPCS: 76805; 81001; 87086; 87491; 87591; 99284

== ENCOUNTER → 2019-06-11 | Outpatient (CLI) | payer OTHER ==
[2019-06-11 10:42] LABS: HCT 32.2 % (34.0-46.0); HGB 10.6 gm/dL (11.4-16.0); MCH 29.1 pg (25.0-35.0); MCHC 32.8 g/dL (31.0-37.0); MCV 88.7 fL (80.0-100.0); Mean Platelet Volume 7.1; Platelet Count 327 k/uL (150-450); RBC 3.63 m/uL (3.80-5.40); RDW 14.6 % (11.5-15.5); WBC 12.7 k/uL (3.8-10.6)
[2019-06-11 17:04] LABS: African American GFR (CKD) 144.8 (60.0-200.0)
[2019-06-11 18:40] LABS: HIV 1 AB Non-Reactive (Non-Reactive); HIV AB P24 Non-Reactive (Non-Reactive); HIV P24 AG Non-Reactive (Non-Reactive)
[2019-06-14 09:00] LABS: Alpha Fetoprotein 58.3 ng/mL; Alpha Fetoprotein (M.O.M) 1.62; B-HCG (M.O.M.) 1.97; Gestational Age (days) 2; Human Chorionic Gonadotropin 27.1 IU/mL; Maternal Age at EDD (Yrs) 28; Smoker Yes; Unconjugated Estriol (M.O.M.) 1.02
== END | disposition home or self-care (01) ==
LOC: LABWHC1 08:42
PROVIDERS: ATTEND Obstetrics & Gynecology
DX: Z34.82 Encounter for supervision of other normal pregnancy, second trimester (principal)
CPT/HCPCS: 36415; 82105; 82565; 82677; 82950; 84702; 85027; 86336; 86762; 86780; 86850; 86900; 86901; 87340; 87390

== ENCOUNTER 2019-10-13 14:29 | Outpatient (CLI) | payer OTHER ==
[2019-10-13 15:06] VITALS: PULSE 96; RESP 16; TEMP 98.2
[2019-10-13 15:23] LABS: Basophils % (A) 0 %; Eosinophils # (A) 0.2 k/uL (0-0.7); Eosinophils % (A) 2 %; HCT 29.6 % (34.0-46.0); HGB 9.7 gm/dL (11.4-16.0); Lymphocytes # (A) 2.3 k/uL (1.0-4.8); Lymphocytes % (A) 20 %; MCH 28.8 pg (25.0-35.0); MCHC 32.7 g/dL (31.0-37.0); Monocytes # (A) 0.6 k/uL (0-1.0); Monocytes % (A) 5 %; Neutrophils # (A) 7.9 k/uL (1.3-7.7); Neutrophils % (A) 71 %; Platelet Count 274 k/uL (150-450); RBC 3.36 m/uL (3.80-5.40); RDW 13.7 % (11.5-15.5); WBC 11.2 k/uL (3.8-10.6)
[2019-10-13 15:35] LABS: ALT 14 U/L (9-52); AST 16 U/L (14-36); African American GFR (CKD) >90 (>60 ml/min/1.73 sqM); Blood Urea Nitrogen 8 mg/dL (7-17); LDH 316 U/L (313-618); Non-African American GFR(CKD) >90 (>60 ml/min/1.73 sqM); Uric Acid 5.8 mg/dL (3.7-7.4)
[2019-10-13 15:48] LABS: Appearance,Urine Cloudy (Clear); Bacteria,Urine Occasional /hpf; Bilirubin,Urine Negative (Negative); Blood,Urine Negative (Negative); Color,Urine Yellow; Glucose,Urine (UA) Negative (Negative); Ketones,Urine Trace (Negative); Leukocyte Esterase,Urine Large (Negative); Mucus,Urine Few /hpf; Nitrite,Urine Negative (Negative); Protein,Urine 1+ (Negative); RBC,Urine 2 /hpf (0-5); Specific Gravity,Urine 1.033 (1.001-1.035); Squamous Epithelial Cell,Urine 10 /hpf (0-4); WBC,Urine 5 /hpf (0-5)
[2019-10-13 16:02] VITALS: BP 114/55
--- NOTE | 2019-10-13 19:30 | P.MSEPDOC ---
Presenting Problems - Arrival Data Date of Arrival on Unit: 10/13/19 Time of Arrival on Unit: 14:20 Mode of Transport: Ambulatory - Complaint OB-Reason for Admission/Chief Complaint: PIH Medical History - Information : 2 Para: 1 Term: 1 : 0 Abortions: Spontaneous or Elective: 0 Number of Living Children: 1 - Gestational Age Gestational Age by DADA (wks/days): 36 Weeks and 0 Days - History Complications: Prior Review of Systems - Review of Systems Constitutional: No problems Breast: No problems ENT: No problems Cardiovascular: No problems Respiratory: No problems Gastrointestinal: No problems Genitourinary: No problems Musculoskeletal: No problems Neurological: No problems Skin: No problems Vital Signs - Temperature Temperature: 98.2 F Temperature Source: Oral - Pulse Right Brachial Pulse Rate: 96 Pulse Assessment Method: Pulse Oximetry - Respirations Respiratory Rate: 16 Oxygen Delivery Method: Room Air O2 Sat by Pulse Oximetry: 96 - Blood Pressure Right Arm Blood Pressure: 114/55 Blood Pressure Mean: 74 Blood Pressure Source: Automatic Cuff Medical Screen Scoring (Pre) - Uterine Contractions Frequency: N/A Duration: N/A Intensity: N/A - Maternal Vital Signs Maternal Blood Pressure: N/A Maternal Respirations: N/A - Maternal Trauma Maternal Trauma: N/A - Assessment - Baby A Baseline FHR: 140 Heart Rate - NICHD Category: Category II (Indeterminate) = 3 Position: N/A Station: N/A - Total Score - Baby A Total Score - Baby A: 3 - Total Score - Baby B Total Score - Baby B: 0 - Total Score - Baby C Total Score - Baby C: 0 - Level of Risk - Baby A Level of Risk - Baby A: Low (0-5) - Level of Risk - Baby B Level of Risk - Baby B: Low (0-5) - Level of Risk - Baby C Level of Risk - Baby C: Low (0-5) Physician Notification (Pre) - Physician Notified Physician Notified Date: 10/13/19 Physician Notified Time: 14:55 New Order Received: Yes - Notification Comment Comment: [facility] labs ordered Medical Screen Scoring (Post) - Cervical Exam Dilation: Exam Deferred Effacement: Exam Deferred Membranes: Intact - Uterine Contractions Frequency: N/A Duration: N/A Intensity: N/A - Maternal Vital Signs Maternal Temperature: N/A Maternal Blood Pressure: N/A Signs of Preeclampsia: N/A Maternal Respirations: N/A - Maternal Trauma Maternal Trauma: N/A - Assessment - Baby A Heart Rate: 150 Heart Rate - NICHD Category: Category I (Normal) = 0 NST: Reactive Position: N/A Station: N/A - Total Score Total Score - Baby A: 0 Total Score - Baby B: 0 Total Score - Baby C: 0 - Post Treatment Level of Risk Post Treatment Level of Risk - Baby A: Low (0-5) Post Treatment Level of Risk - Baby B: Low (0-5) Post Treatment Level of Risk - Baby C: Low (0-5) Physician Notification (Post) - Physician Notified Physician Notified Date: 10/13/19 Physician Notified Time: 15:55 Spoke With: Crystal Sebastian Order Received: Yes - Notification Comment Comment: Reviewed labs and pts serial BP; pt to be d/c home, follow up as scheduled. Disposition - Disposition OB Disposition: Discharge to home, Written follow up instructions reviewed Discharge Date: 10/13/19 Discharge Time: 16:00 I agree with the RN Medical Screening Exam: Yes Risk & Benefit of care provided described in d/c instruction: Yes Diagnosis: GESTATIONAL HTN W/O SIGNIFICANT PROTEINURIA, THIRD TRIMESTER
== END 2019-10-13 16:00 | disposition home or self-care (01) ==
LOC: FBPOP 14:29
PROVIDERS: ATTEND Obstetrics & Gynecology
DX: O13.3 Gestational [pregnancy-induced] hypertension without significant proteinuria, third trimester (principal); Z3A.36 36 weeks gestation of pregnancy
CPT/HCPCS: 59025; 82565; 83615; 84450; 84460; 84520; 84550; 85025; 81001; G0463; 99215

== ENCOUNTER 2019-11-03 06:26 | Inpatient (IN) | payer OTHER ==
[2019-11-01 15:20] VITALS: BMI 50.7
[2019-11-03] MEDS ORDERED: LACTATED RINGERS 1,000 ML IV ONE (07:00)
[2019-11-03] MEDS ORDERED: CITRIC ACID-SODIUM CITRATE 15 ML CUP PO ONE (07:00)
[2019-11-03] MEDS ORDERED: ceFAZolin 3 GM in SODIUM CHLORIDE 0.9% 100 ML IVPB ONE (07:00)
[2019-11-03 07:29] LABS: Basophils # (A) 0.3 k/uL (0-0.2); Basophils % (A) 3 %; Eosinophils # (A) 0.3 k/uL (0-0.7); Eosinophils % (A) 3 %; HCT 31.9 % (34.0-46.0); HGB 10.2 gm/dL (11.4-16.0); Lymphocytes # (A) 2.6 k/uL (1.0-4.8); Lymphocytes % (A) 24 %; MCH 27.6 pg (25.0-35.0); MCV 86.3 fL (80.0-100.0); Mean Platelet Volume 8.5; Monocytes # (A) 0.6 k/uL (0-1.0); Monocytes % (A) 5 %; Neutrophils # (A) 6.8 k/uL (1.3-7.7); Neutrophils % (A) 63 %; Platelet Count 269 k/uL (150-450); RDW 14.2 % (11.5-15.5); WBC 10.8 k/uL (3.8-10.6)
[2019-11-03] MEDS ORDERED: NALBUPHINE 10 MG/ML (1 ML AMP) ONE (08:30)
[2019-11-03] MEDS ORDERED: fentaNYL (PF) 50 MCG/ML 2 ML AMP ONE (08:30)
[2019-11-03] MEDS ORDERED: ONDANSETRON 4 MG/2 ML VIAL ONE (08:30)
[2019-11-03] MEDS ORDERED: OXYTOCIN 10 UNIT/ML 1 ML VIAL ONE (08:30)
[2019-11-03] MEDS ORDERED: ePHEDrine SULFATE/0.9% NACL/PF 50 MG/5 ML SYRINGE IV ONE (08:30)
[2019-11-03] MEDS ORDERED: KETOROLAC 30 MG/ML 1 ML VIAL ONE (08:30)
[2019-11-03] MEDS ORDERED: ACETAMINOPHEN TAB 325 MG TAB PO PRN (09:46)
[2019-11-03] MEDS ORDERED: METOCLOPRAMIDE 5 MG/ML 2 ML VIAL IVP PRN (09:46)
[2019-11-03] MEDS ORDERED: diphenhydrAMINE 25 MG CAP PO PRN (09:46)
[2019-11-03] MEDS ORDERED: diphenhydrAMINE 50 MG/ML 1 ML VIAL IVP PRN ×2 (09:46)
[2019-11-03] MEDS ORDERED: ONDANSETRON 4 MG/2 ML VIAL IVP PRN (09:46)
[2019-11-03] MEDS ORDERED: ZOLPIDEM 5 MG TAB PO PRN (09:46)
[2019-11-03] MEDS ORDERED: HYDROcodone/APAP 7.5-325MG 1 EACH TAB PO PRN (09:46)
[2019-11-03] MEDS ORDERED: diphenhydrAMINE 50 MG CAP PO PRN (09:46)
[2019-11-03] MEDS ORDERED: NALOXONE 0.4 MG/ML 1 ML VIAL IV PRN ×2 (09:46→09:47)
[2019-11-03] MEDS ORDERED: KETOROLAC 30 MG/ML 1 ML VIAL IVP PRN (09:47)
[2019-11-03] MEDS ORDERED: MORPHINE SULFATE 4 MG/ML SYRINGE IVP PRN (09:47)
--- NOTE | 2019-11-03 09:50 | P.OP ---
Date of Procedure: 11/03/19 Preoperative Diagnosis: intrauterine at term: Previous section Postoperative Diagnosis: same Procedure(s) Performed: repeat low transverse section Anesthesia: spinal Surgeon: Saman Rojas Youth Care Specialist #1: Sheila Love Estimated Blood Loss (ml): 800 IV fluids (ml): 1,300 Urine output (ml): 500 Pathology: other (placenta) Condition: stable Disposition: floor Operative Findings: female scores of 8 and 9 at one and 5 minutes Tay and the weight was 5 lbs. 15 oz. Description of Procedure: patient was taken to the operating room where a spinal anesthetic was found be adequate. She was prepped and draped in the normal sterile fashion and placed in the dorsal supine position with leftward tilt. A Pfannenstiel skin incision was then made and this incision was then carried through to underlying layer of the fashion with the second knife. Fascia was then nicked in the midline and this opening was extended laterally with Coffey scissors. Superior and inferior aspect of this incision were then grasped tented up and bluntly and sharply dissected off the rectus muscles. Rectus muscles were then divided midline and sharp dissection through the peritoneum was done. This opening was then extended superiorly and inferiorly with good visualization of both bowel bladder. Bladder blade was then placed knife was then used to incise uterus well above the bladder flap. Hemostat was then used to fully developed incision and it was extended bluntly. Head was then atraumatically delivered mouth nares bulb suctioned anterior posterior shoulders easily delivered followed by the remainder the baby. Umbilical cord was then clamped cut usual fashion an nursery personnel was present to assume care. Placenta was then delivered int act and Pitocin was added to the IV. Uterus was then exteriorized cleared of clots and debris and closed in 2 layers with 0 Vicryl suture. Along the right side of the incision are still a little bit of bleeding that was noted therefore FloSeal was applied over this area to obtain excellent hemostasis once the uterus was reinserted into the abdomen. Blood and debris had previously been suctioned posterior cul-de-sac. Once this was accomplished rectus muscles were reapproximated as well as possible with significant omentum that had been scarred to the ear [place] noted. Fascial layer was then closed with 0 Vicryl suture one layer of 3-0 Vicryl was placed in deep subcuticular tissues to reapproximate the skin and the skin was then closed with 3-0 Vicryl subcuticular. Sponge, lap, needle counts were all correct 2. Patient was then taken to the recovery room in stable and satisfactory condition.
[2019-11-03] MEDS: LACTATED RINGERS 1,000 ML IV SCH ×4 (10:53→21:14)
--- NOTE | 2019-11-03 13:22 | P.HPOB ---
History of Present Illness H&P Date: 11/03/19 Chief Complaint: intrauterine at term: Prior section patient is a 21-year-old at 39 weeks gestation who arrives for repeat low transverse section. Risks/benefits/alternatives to this procedure were reviewed with the patient in detail all questions were answered for her prior to proceeding to the operative room. has been, K by a EIF in the left ventricle for which she saw maternal- medicine. After one visit she was unable to continue to go to high risk therefore NSTs were performed locally. By a late ultrasound no EIF was seen any longer and the remainder of the ultrasound was unremarkable. She did not do her 1 hour Glucola screen and at 33-34 weeks a hemoglobin A1c was done and returned normal. Ultrasounds following the size were done and remained within normal range throughout. This morning, a category 1 tracing is noted and she is denying any other issues or questions today. Past Medical History Past Medical History: No Reported History History of Any Multi-Drug Resistant Organisms: None Reported Past Surgical History: Section Additional Past Surgical History / Comment(s): cyst on wrist Past Anesthesia/Blood Transfusion Reactions: No Reported Reaction Past Psychological History: No Psychological Hx Reported Smoking Status: Current every day smoker Past Alcohol Use History: None Reported Additional Past Alcohol Use History / Comment(s): started smoking at age 19,smokes approx 6 cigarettes per day Past Drug Use History: None Reported - Past Family History Mother Family Medical History: Hypertension Sister(s) Family Medical History: Cancer, Diabetes Mellitus Additional Family Medical History / Comment(s): pt's nephew's sickle cell anemia, sister-breast CA Medications and Allergies Home Medications Medication Instructions Recorded Confirmed Type Xxt-Bzdh-Zhjhv Acid 1 cap PO DAILY 05/23/19 11/01/19 History [-U Capsule (formulary)] Allergies Allergy/AdvReac Type Severity Reaction Status Date / Time sulfamethoxazole Allergy Nausea & Verified 11/01/19 15:14 [From Bactrim] Vomiting trimethoprim [From Bactrim] Allergy Nausea & Verified 11/01/19 15:14 Vomiting Exam Osteopathic Statement: *. No significant issues noted on an osteopathic structural exam other than those noted in the History and Physical/Consult. Vital Signs Temp Pulse Resp BP Pulse Ox 11/03/19 12:00 96.7 F L 63 16 123/61 11/03/19 11:30 69 16 123/68 98 11/03/19 11:00 66 16 135/74 100 11/03/19 10:45 61 16 135/67 100 11/03/19 10:30 71 16 131/64 98 11/03/19 10:15 73 16 117/50 99 11/03/19 10:00 96.7 F L 80 16 121/61 97 11/03/19 06:44 97.1 F L 91 16 153/73 Intake and Output 11/02/19 11/03/19 11/03/19 22:59 06:59 14:59 Intake Total 1300 Output Total 1400 Balance -100 Intake: IV 1300 Output: Urine 600 Estimated Blood Loss 800 Other: Weight 138.346 kg - OBG Physical Exam Breast: both: normal (no masses) Abdomen: morbidly obese Abdomen: bowel sounds normal, no diffuse tenderness, no bruit present, no guarding noted, no hepatomegaly, no splenomegaly, no mass Vulva: both: normal Vagina: normal moisture, no discharge Cervix: no lesion, no discharge Uterus: normal size, normal contour Adnexa: both: normal Anus/Rectum: normal perianal skin, no rectal mass, no hemorrhoids, heme negative Results Result Diagrams: 11/03/19 07:10 Abnormal Lab Results - Last 24 Hours (Table) 11/03/19 Range/Units 07:10 WBC 10.8 H (3.8-10.6) k/uL RBC 3.70 L (3.80-5.40) m/uL Hgb 10.2 L (11.4-16.0) gm/dL Hct 31.9 L (34.0-46.0) % Basophils # 0.3 H (0-0.2) k/uL
[2019-11-03] MEDS: ceFAZolin 3 GM in SODIUM CHLORIDE 0.9% 100 ML IVPB SCH ×2 (15:11→23:20)
[2019-11-03] MEDS: KETOROLAC 30 MG/ML 1 ML VIAL IVP PRN ×2 (15:21→23:20)
[2019-11-03] MEDS: SENNOSIDES-DOCUSATE SODIUM 1 EACH TAB PO SCH (21:14)
[2019-11-04] MEDS: LACTATED RINGERS 1,000 ML IV SCH (02:02)
[2019-11-04] MEDS: KETOROLAC 30 MG/ML 1 ML VIAL IVP PRN (09:03)
--- NOTE | 2019-11-04 09:23 | P.PNOBGPC ---
Subjective - Subjective Principal diagnosis: postop day 1 Interval history: overall patient is doing well. She is ambulating, voiding and she is tolerating her diet. Through the night she apparently was having difficulties with voiding but refused straight catheterization. She apparently also had some bleeding through the night both vaginally and incision one appears but it at this time appears to have stopped. Her incision is essentially clean dry and intact now after removing the dressing we'll continue to monitor this closely. Initial hemoglobin was 10.2. She had a CBC ordered for this morning but again she refused to have it drawn. Reiterated with her need particular with the bleeding tonight to verify stability with her hemoglobin. But she has no signs or symptoms of hypovolemia and is really without complaints at this time. Objective - Vital Signs Latest vital signs: Vital Signs Temp Pulse Resp BP Pulse Ox 11/04/19 06:00 16 11/04/19 04:00 98.2 F 88 16 128/66 98 11/04/19 02:00 16 11/03/19 23:49 98.3 F 80 16 116/69 98 11/03/19 22:00 16 97 11/03/19 20:00 97.8 F 91 16 109/73 97 11/03/19 18:00 18 98 11/03/19 15:45 98.2 F 80 18 128/84 11/03/19 12:00 96.7 F L 63 16 123/61 11/03/19 11:30 69 16 123/68 98 11/03/19 11:00 66 16 135/74 100 11/03/19 10:45 61 16 135/67 100 11/03/19 10:30 71 16 131/64 98 11/03/19 10:15 73 16 117/50 99 11/03/19 10:00 96.7 F L 80 16 121/61 97 Intake and Output 11/03/19 11/04/19 11/04/19 22:59 06:59 14:59 Intake Total 1000 600 Output Total 400 400 Balance 600 200 Intake: IV 1000 Invasive Line 1 1000 Other 600 Output: Urine 400 400 Uretheral (Vinson) 400 - Exam Lungs: bilateral: normal Chest: Normal S1, Normal S2 Extremities: Present: normal Abdomen: Present: normal appearance, soft. Absent: distention, tenderness Incision: Present: normal, dry, intact Uterus: Present: normal, firm
[2019-11-04 10:45] LABS: Basophils # (A) 0.2 k/uL (0-0.2); Basophils % (A) 1 %; Eosinophils # (A) 0.3 k/uL (0-0.7); Eosinophils % (A) 2 %; HCT 26.7 % (34.0-46.0); Lymphocytes # (A) 2.1 k/uL (1.0-4.8); Lymphocytes % (A) 15 %; MCHC 32.3 g/dL (31.0-37.0); MCV 86.7 fL (80.0-100.0); Mean Platelet Volume 8.8; Monocytes # (A) 0.9 k/uL (0-1.0); Monocytes % (A) 6 %; Neutrophils # (A) 10.3 k/uL (1.3-7.7); Neutrophils % (A) 74 %; Platelet Count 265 k/uL (150-450); RBC 3.08 m/uL (3.80-5.40); RDW 14.1 % (11.5-15.5); WBC 13.9 k/uL (3.8-10.6)
[2019-11-04 10:53] LABS: HGB 8.6 gm/dL (11.4-16.0)
[2019-11-04] MEDS: SENNOSIDES-DOCUSATE SODIUM 1 EACH TAB PO SCH ×2 (11:00→21:29)
--- NOTE | 2019-11-04 13:36 | P.PN ---
Progress Note - Text Progress Note Date: 11/04/19 Postoperative day 1 status post section under spinal anesthesia, and i ntrathecal morphine given for postoperative analgesia, patient doing well, there is no anesthesia related complications, Patient had no headache, vital signs stable , Assessment and plan= postop day 1 status post , doing well there is no anesthesia related complication.
[2019-11-04] MEDS: IBUPROFEN 600 MG TAB PO PRN ×2 (15:17→21:59)
--- NOTE | 2019-11-05 07:54 | P.PNOBGPC ---
Subjective - Subjective Principal diagnosis: postoperative day 2 Interval history: patient is seen and evaluated postop day 2. Snoring she has what sounds like a productive cough and in discussing with patient she has the incentive spirometry but has not been doing it at all. She said she is more 2 times yesterday on despite having instructions to 10 times every hour while she was awake. We'll were stat chest x-ray and influenza and rule out pneumonia or the flu. Likely consult medicine for treatment options and potential sputum culture if influenza is negative. At this time we will hold discharge and try and get a better grasp on what symptoms have been going on is this is developed since yesterday. On physical exam vital signs are otherwise stable and she is afebrile. White blood cell count yesterday was 13.9 status post surgery in her hemoglobin wall a drop was 8.6. She is otherwise feeling well but does continue to have a productive wet cough and with her having a would prefer to make sure there are no other issues or problems prior to discharge certainly for the sake of the baby. Questions are answered for her at this time and future decisions will be made on chest x-ray and cultures. Heart is regular and extremities are without pain. Abdomen is soft her incision is clean dry and intact. Bilateral rhonchi are noted with wet sounding cough that is developed since yesterday. Assessment postop day 2 with possible pneumonia Plan as above Objective - Vital Signs Latest vital signs: Vital Signs Temp Pulse Resp BP Pulse Ox 11/04/19 23:08 97.9 F 72 18 113/81 100 11/04/19 18:00 16 11/04/19 16:00 98.3 F 93 16 137/65 96 11/04/19 14:00 16 11/04/19 12:00 16 11/04/19 10:00 17 11/04/19 08:00 98.2 F 83 16 132/71 97 Intake and Output 11/04/19 11/05/19 11/05/19 22:59 06:59 14:59 Other: # Voids 1 - Labs Labs: Abnormal Lab Results - Last 24 Hours (Table) 11/04/19 Range/Units 09:35 WBC 13.9 H (3.8-10.6) k/uL RBC 3.08 L (3.80-5.40) m/uL Hgb 8.6 L D (11.4-16.0) gm/dL Hct 26.7 L (34.0-46.0) % Neutrophils # 10.3 H (1.3-7.7) k/uL
--- NOTE | 2019-11-05 08:17 | XR ---
EXAMINATION TYPE: XR chest 2V DATE OF EXAM: 11/05/2019 COMPARISON: 11/17/2016 INDICATION: Pneumonia TECHNIQUE: Frontal and lateral views of the chest are obtained. FINDINGS: The heart size is normal. The pulmonary vasculature is normal. The lungs are clear. IMPRESSION: 1. No acute pulmonary process.
[2019-11-05] MEDS: SENNOSIDES-DOCUSATE SODIUM 1 EACH TAB PO SCH (09:53)
[2019-11-05 10:18] VITALS: RESP 20
[2019-11-05 10:19] VITALS: BP 121/75; PULSE 93; TEMP 98.1
--- NOTE | 2019-11-05 13:08 | P.DS ---
Providers Date of admission: 11/03/19 06:26 Expected date of discharge: 11/05/19 Attending physician: Saman Rojas Primary care physician: Stated None Hospital Course: Patient is doing very well post op day 2. She is involuting, voiding and tolerating her diet. She now understands better the significance of incentive spirometry and we'll continue 10 times per hour while she is awake at home. Chest x-ray was ordered and showed no acute process. Flu swab was also negative. We'll discharge her with a prescription for Keflex as precaution. She is a smoker and is most likely that she is not have Evy last few days and her cilia are now working better as she is not coughing up any significant colored phlegm. We'll continue to observe carefully with her understanding discharge instructions and will follow up with me in 1 week. Prescription for [place] and Motrin are forwarded to her pharmacy. On physical exam vital signs are stable and afebrile. Heart regular, lungs clear, extremities without pain. Abdomen is soft uterus is firm and low incision is clean dry and intact. Assessment postop day 2. Plan discharged home follow up with me in 1 week. Patient Condition at Discharge: Good Plan - Discharge Summary Discharge Rx Participant: No New Discharge Prescriptions: New Ibuprofen [Motrin] 600 mg PO Q6HR PRN #30 tab PRN Reason: Pain HYDROcodone/APAP 5-325MG [[place] 5-325] 1 tab PO Q4HR PRN #30 tab PRN Reason: Pain Cephalexin [Keflex] 500 mg PO Q6HR #20 cap No Action Fkb-[id number]-Tgqzh Acid [-U Capsule (formulary)] 1 cap PO DAILY Discharge Medication List Uwz-Wgql-Nnkjt Acid [-U Capsule (formulary)] 1 cap PO DAILY 05/23/19 [History] Cephalexin [Keflex] 500 mg PO Q6HR #20 cap 11/05/19 [Rx] HYDROcodone/APAP 5-325MG [[place] 5-325] 1 tab PO Q4HR PRN #30 tab 11/05/19 [Rx] Ibuprofen [Motrin] 600 mg PO Q6HR PRN #30 tab 11/05/19 [Rx] Follow up Appointment(s)/Referral(s): Saman Rojas DO [Doctor of Osteopathic Medicine] - 1 Week Activity/Diet/Wound Care/Special Instructions: No heavy lifting, limit stairs and driving, and pelvic rest. If any high temperatures, heavy bleeding, or severe pain call my office or report to the emergency room. Discharge Disposition: HOME SELF-CARE
== END 2019-11-05 13:30 | disposition home or self-care (01) | DRG 788 ==
LOC: 4FBP 06:26
PROVIDERS: ADMIT Obstetrics & Gynecology; ATTEND Obstetrics & Gynecology
PROC: 10D00Z1 Extraction of Products of Conception, Low, Open Approach (ICD-10-PCS; principal; 2019-11-03 08:30)
DX: O34.212 Maternal care for vertical scar from previous cesarean delivery (principal); N85.8 Other specified noninflammatory disorders of uterus; O99.334 Smoking (tobacco) complicating childbirth; F17.210 Nicotine dependence, cigarettes, uncomplicated; Z37.0 Single live birth; Z3A.39 39 weeks gestation of pregnancy; R05 Cough; R06.83 Snoring; Z79.899 Other long term (current) drug therapy; Z88.2 Allergy status to sulfonamides; Z82.49 Family history of ischemic heart disease and other diseases of the circulatory system; Z83.3 Family history of diabetes mellitus; Z83.2 Family history of diseases of the blood and blood-forming organs and certain disorders involving the immune mechanism; Z80.3 Family history of malignant neoplasm of breast
CPT/HCPCS: 71046; 85025; 86850; 86900; 86901; 87502; 88307

== ENCOUNTER 2025-05-24 10:28 | Emergency (ER) | payer OTHER ==
--- NOTE | 2025-05-24 11:22 | ED ---
General Adult HPI - General Source: patient, RN notes reviewed Mode of arrival: ambulatory Limitations: no limitations <Mariposa Foster - Last Filed: 06/01/25 00:29> <Shanelle Muñoz - Last Filed: 06/03/25 00:40> - General Chief complaint: Abdominal Pain Stated complaint: Abd pain, vomiting Time Seen by Provider: 05/24/25 10:45 - History of Present Illness Initial comments: 34-year-old female presents to the emergency department for evaluation of abdominal pain. Patient states that this started about a month ago. She notes that it is intermittent. She does not know of any aggravating or relieving factors. She states that the episodes are stabbing pain in the epigastric region. She denies any fever, chills. She does endorse nausea with vomiting. Denies any changes in her bowel movements. Prior abdominal surgeries include section. (Mariposa Foster) - Related Data Home Medications Medication Instructions Recorded Confirmed Rde-Dvsc-Ymnti Acid 1 cap PO DAILY 05/23/19 11/01/19 [-U Capsule (formulary)] Previous Rx's Medication Instructions Recorded Cephalexin [Keflex] 500 mg PO Q6HR #20 cap 11/05/19 HYDROcodone/APAP 5-325MG [[place] 1 tab PO Q4HR PRN #30 tab 11/05/19 5-325] Ibuprofen [Motrin] 600 mg PO Q6HR PRN #30 tab 11/05/19 Ondansetron Odt [Zofran Odt] 4 mg PO Q8HR PRN #10 tab 05/24/25 Allergies Allergy/AdvReac Type Severity Reaction Status Date / Time sulfamethoxazole Allergy Nausea & Verified 05/24/25 10:40 [From Bactrim] Vomiting trimethoprim [From Bactrim] Allergy Nausea & Verified 05/24/25 10:40 Vomiting Review of Systems ROS Other: All systems not noted in ROS Statement are negative. <Mariposa Foster - Last Filed: 06/01/25 00:29> ROS Other: All systems not noted in ROS Statement are negative. <Shanelle Muñoz - Last Filed: 06/03/25 00:40> ROS Statement: Those systems with pertinent positive or pertinent negative responses have been documented in the HPI. Past Medical History Past Medical History: No Reported History History of Any Multi-Drug Resistant Organisms: None Reported Past Surgical History: Section Additional Past Surgical History / Comment(s): cyst on wrist, Past Anesthesia/Blood Transfusion Reactions: No Reported Reaction Past Psychological History: No Psychological Hx Reported Past Alcohol Use History: None Reported Past Drug Use History: None Reported - Past Family History Mother Family Medical History: Hypertension Sister(s) Family Medical History: Cancer, Diabetes Mellitus Additional Family Medical History / Comment(s): pt's nephew's sickle cell anemia, sister-breast CA <Mariposa Foster - Last Filed: 06/01/25 00:29> General Exam Limitations: no limitations <Mariposa Foster - Last Filed: 06/01/25 00:29> Course Vital Signs 05/24/25 05/24/25 10:38 15:55 Temperature 98.2 F 97.8 F Pulse Rate 74 78 Respiratory 16 18 Rate Blood Pressure 156/93 106/68 O2 Sat by Pulse 98 99 Oximetry Medical Decision Making - Lab Data Result diagrams: 05/24/25 11:49 05/24/25 11:49 <Mariposa Foster - Last Filed: 06/01/25 00:29> - Lab Data Result diagrams: 05/24/25 11:49 05/24/25 11:49 <Shanelle Muñoz - Last Filed: 06/03/25 00:40> - Medical Decision Making Was pt. sent in by a medical professional or institution (Dr. PA, RESEARCH RN SPEC, urgent care, hospital, or skilled nursing...) When possible be specific @ -No Did you speak to anyone other than the patient for history (EMS, parent, family, police, friend...)? What history was obtained from this source @ -No Did you review nursing and triage notes (agree or disagree)? Why? @ -I reviewed and agree with nursing and triage notes Were old charts reviewed (outside hosp., previous admission, EMS record, old EKG, old radiological studies, urgent care reports/EKG's, skilled nursing records)? Report findings @ -No old charts were reviewed Differential Diagnosis (chest pain, altered mental status, abdominal pain women, abdominal pain men, vaginal bleeding, weakness, fever, dyspnea, syncope, headache, dizziness, GI bleed, back pain, seizure, CVA, palpatations, mental health, musculoskeletal)? @ -Differential Abdominal Pain Women: Appendicitis, Cholecystitis, diverticulosis, ischemic bowel, pancreatitis, hepatitis, UTI, gastroenteritis, AAA, incarcerated hernia, bowel obstruction, constipation, inflammatory bowel, hepatitis, peptic ulcer disease, splenic infarction, perforated viscus, vulvitis, ovarian torsion, PID, kidney stone, placenta abruption, this is not meant to be an all-inclusive list EKG interpreted by me (3pts min.). @ -None X-rays interpreted by me (1pt min.). @ -None done CT interpreted by me (1pt min.). @ -None done U/S interpreted by me (1pt. min.). @ -Gallbladder ultrasound revealsHyperechoic material within the gallbladder, heterogenous and enlarged liver, no evidence for acute process What testing was considered but not performed or refused? (CT, X-rays, U/S, labs)? Why? @ -None What meds were considered but not given or refused? Why? @ -None Did you discuss the management of the patient with other professionals (professionals i.e. , PA, RESEARCH RN SPEC, lab, RT, psych nurse, socially responsible investment adviser, evp head of [employer] experience strategy, teacher, animal control officer, rn case manager)? Give summary @ -I discussed the case with Dr. Huffman who recommends follow up in the office if symptom improvement Was smoking cessation discussed for >3mins.? @ -No Was critical care preformed (if so, how long)? @ -No Were there social determinants of health that impacted care today? How? (Homelessness, low income, unemployed, alcoholism, drug addiction, transportation, low edu. Level, literacy, decrease access to med. care, prison, rehab)? @ -No Was there de-escalation of care discussed even if they declined (Discuss DNR or withdrawal of care, Hospice)? DNR status @ -No What co-morbidities impacted this encounter? (DM, HTN, Smoking, COPD, CAD, Cancer, CVA, ARF, Chemo, Hep., AIDS, mental health diagnosis, sleep apnea, morbid obesity)? @ -None Was patient admitted / discharged? Hospital course, mention meds given and route, prescriptions, significant lab abnormalities, going to OR and other pertinent info. @ -Discharge. Patient presented emergency department for evaluation of abdominal pain. Laboratory studies revealed no significant leukocytosis hemoglobin 14; patient has elevated bilirubin at 1.4, AST 468, ALT 359. UA sh ows no evidence of infectious process, urine hCG was negative. Ultrasound of the gallbladder was obtained. There is hyperechoic material within the gallbladder with biliary sludge without evidence for acute process. I discussed the case with general surgery, Dr. Huffman who recommends outpatient follow up in the office if symptoms are improved. I discussed this with the patient. She does report significant improvement in her symptoms with medications. She will be discharged home. She was advised to follow-up with general surgery. Strict return precautions discussed. She is understanding agreeable to plan. Patient stable at time of discharge. Case discussed with Dr. Muñoz Undiagnosed new problem with uncertain prognosis? @ -No Drug Therapy requiring intensive monitoring for toxicity (Heparin, Nitro, Insulin, Cardizem)? @ -No Were any procedures done? @ -No Diagnosis/symptom? @ -biliary sludge, transaminitis Acute, or Chronic, or Acute on Chronic? @ -acute Uncomplicated (without systemic symptoms) or Complicated (systemic symptoms)? @ -uncomplicated Side effects of treatment? @ -No Exacerbation, Progression, or Severe Exacerbation? @ -No Poses a threat to life or bodily function? How? (Chest pain, USA, PA, pneumonia, PE, COPD, DKA, ARF, appy, cholecystitis, CVA, Diverticulitis, Homicidal, Suicidal, threat to staff... and all critical care pts) @ -No (Mariposa Foster) Patient told she has very low threshold to return to ED (Shanelle Muñoz) - Lab Data Lab Results 05/24/25 05/24/25 05/24/25 Range/Units 11:49 11:49 11:49 WBC 7.23 (4.50-10.00) 10*3/uL RBC 5.27 H (4.10-5.20) 10*6/uL Hgb 14.0 (12.0-15.0) g/dL Hct 42.8 (37.2-46.3) % MCV 81.2 (80.0-97.0) fL MCH 26.6 L (27.0-32.0) pg MCHC 32.7 (32.0-37.0) g/dL Plt Count 349 (140-440) 10*3/uL MPV 9.6 (9.5-12.2) fL Immature Gran % (Auto) 0.1 % Neutrophils % 53.6 % Lymphocytes % 30.8 % Monocytes % 9.8 % Eosinophils % 5.3 % Basophils % 0.4 % Immature Gran # 0.01 (0.00-0.04) 10*3/uL Neutrophils # 3.87 (1.80-7.70) 10*3/uL Lymphocytes # 2.23 (0.90-5.00) 10*3/uL Monocytes # 0.71 (0.20-1.00) 10*3/uL Eosinophils # 0.38 H (0.04-0.35) 10*3/uL Basophils # 0.03 (0.00-0.10) 10*3/uL Sodium (137-145) mmol/L Potassium (3.5-5.1) mmol/L Chloride (98-107) mmol/L Carbon Dioxide (22-30) mmol/L Anion Gap mmol/L BUN (7-17) mg/dL Creatinine (0.52-1.04) mg/dL Est GFR (CKD-EPI)AfAm (>60 ml/min/1.73 sqM) Est GFR (CKD-EPI)NonAf (>60 ml/min/1.73 sqM) Glucose (74-99) mg/dL Calcium (8.4-10.2) mg/dL Total Bilirubin (0.2-1.3) mg/dL AST (14-36) U/L ALT (4-34) U/L Alkaline Phosphatase (38-126) U/L Total Protein (6.3-8.2) g/dL Albumin (3.5-5.0) g/dL Amylase (30-110) U/L Lipase (23-300) U/L Urine Color Light Yellow Urine Appearance Clear (Clear) Urine pH 6.0 (5.0-8.0) Ur Specific Cook 1.007 (1.001-1.035) Urine Protein Negative (Negative) Urine Glucose (UA) Negative (Negative) Urine Ketones Negative (Negative) Urine Blood Negative (Negative) Urine Nitrite Negative (Negative) Urine Bilirubin Negative (Negative) Urine Urobilinogen <2.0 (<2.0) mg/dL Ur Leukocyte Esterase Negative (Negative) Urine HCG, Qual Not Detected (Not Detectd) HIV-1 Antibody (Non-Reactive) HIV Ag/Ab Interpret HIV p24 Antibody (Non-Reactive) HIV-2 Antibody (Non-Reactive) HIV P24 Antigen (Non-Reactive) 05/24/25 05/24/25 Range/Units 11:49 11:53 WBC (4.50-10.00) 10*3/uL RBC (4.10-5.20) 10*6/uL Hgb (12.0-15.0) g/dL Hct (37.2-46.3) % MCV (80.0-97.0) fL MCH (27.0-32.0) pg MCHC (32.0-37.0) g/dL Plt Count (140-440) 10*3/uL MPV (9.5-12.2) fL Immature Gran % (Auto) % Neutrophils % % Lymphocytes % % Monocytes % % Eosinophils % % Basophils % % Immature Gran # (0.00-0.04) 10*3/uL Neutrophils # (1.80-7.70) 10*3/uL Lymphocytes # (0.90-5.00) 10*3/uL Monocytes # (0.20-1.00) 10*3/uL Eosinophils # (0.04-0.35) 10*3/uL Basophils # (0.00-0.10) 10*3/uL Sodium 137 (137-145) mmol/L Potassium 5.3 H (3.5-5.1) mmol/L Chloride 102 (98-107) mmol/L Carbon Dioxide 27 (22-30) mmol/L Anion Gap 8 mmol/L BUN 10 (7-17) mg/dL Creatinine 0.72 (0.52-1.04) mg/dL Est GFR (CKD-EPI)AfAm >90 (>60 ml/min/1.73 sqM) Est GFR (CKD-EPI)NonAf >90 (>60 ml/min/1.73 sqM) Glucose 78 (74-99) mg/dL Calcium 9.6 (8.4-10.2) mg/dL Total Bilirubin 1.4 H (0.2-1.3) mg/dL AST 468 H (14-36) U/L ALT 359 H (4-34) U/L Alkaline Phosphatase 110 (38-126) U/L Total Protein 8.2 (6.3-8.2) g/dL Albumin 4.1 (3.5-5.0) g/dL Amylase 58 (30-110) U/L Lipase 109 (23-300) U/L Urine Color Urine Appearance (Clear) Urine pH (5.0-8.0) Ur Specific Cook (1.001-1.035) Urine Protein (Negative) Urine Glucose (UA) (Negative) Urine Ketones (Negative) Urine Blood (Negative) Urine Nitrite (Negative) Urine Bilirubin (Negative) Urine Urobilinogen (<2.0) mg/dL Ur Leukocyte Esterase (Negative) Urine HCG, Qual (Not Detectd) HIV-1 Antibody Non-Reactive (Non-Reactive) HIV Ag/Ab Interpret HIV p24 Antibody Non-Reactive (Non-Reactive) HIV-2 Antibody Non-Reactive (Non-Reactive) HIV P24 Antigen Non-Reactive (Non-Reactive) Disposition Is patient prescribed a controlled substance at d/c from ED?: No <Mariposa Foster - Last Filed: 06/01/25 00:29> <Shanelle Muñoz - Last Filed: 06/03/25 00:40> Clinical Impression: Biliary sludge, Elevated liver enzymes Disposition: HOME SELF-CARE Condition: Stable Instructions (If sedation given, give patient instructions): Biliary Colic (ED) Additional Instructions: Please follow-up with general surgery. Return to the emergency department for new or worsening symptoms. Prescriptions: Ondansetron Odt [Zofran Odt] 4 mg PO Q8HR PRN #10 tab PRN Reason: Nausea Referrals: Mj Rodriguez DO [Primary Care Provider] - 1-2 days Claire Huffman DO [Doctor of Osteopathic Medicine] - 1-2 days
[2025-05-24 11:58] LABS: Bilirubin,Urine Negative (Negative); Blood,Urine Negative (Negative); Color,Urine Light Yellow; Glucose,Urine (UA) Negative (Negative); Ketones,Urine Negative (Negative); Leukocyte Esterase,Urine Negative (Negative); Nitrite,Urine Negative (Negative); PH, Urine 6.0 (5.0-8.0); Protein,Urine Negative (Negative); Specific Gravity,Urine 1.007 (1.001-1.035); Urobilinogen,Urine <2.0 mg/dL (<2.0)
[2025-05-24 11:59] LABS: Basophils # (A) 0.03 10*3/uL (0.00-0.10); Basophils % (A) 0.4 %; Eosinophils # (A) 0.38 10*3/uL (0.04-0.35); Eosinophils % (A) 5.3 %; HCT 42.8 % (37.2-46.3); HGB 14.0 g/dL (12.0-15.0); Lymphocytes # (A) 2.23 10*3/uL (0.90-5.00); Lymphocytes % (A) 30.8 %; MCH 26.6 pg (27.0-32.0); MCHC 32.7 g/dL (32.0-37.0); MCV 81.2 fL (80.0-97.0); Monocytes # (A) 0.71 10*3/uL (0.20-1.00); Monocytes % (A) 9.8 %; Neutrophils # (A) 3.87 10*3/uL (1.80-7.70); Neutrophils % (A) 53.6 %; Platelet Count 349 10*3/uL (140-440); RBC 5.27 10*6/uL (4.10-5.20); RDW 14.0 % (11.5-14.5); WBC 7.23 10*3/uL (4.50-10.00)
[2025-05-24] MEDS: MAG HYDROX/AL HYDROX/SIMETH 30 ML CUP PO STA (12:08)
[2025-05-24] MEDS: LIDOCAINE VISCOUS 2% 15 ML CUP PO ONE (12:08)
[2025-05-24] MEDS: PANTOPRAZOLE 40 MG/10 ML VIAL IVP STA (12:09)
[2025-05-24] MEDS: SODIUM CHLORIDE 0.9% 1,000 ML IV ONE (12:10)
[2025-05-24 12:16] LABS: ALT 359 U/L (4-34); African American GFR (CKD) >90 (>60 ml/min/1.73 sqM); Amylase 58 U/L (30-110); Anion Gap 8 mmol/L; Blood Urea Nitrogen 10 mg/dL (7-17); Calcium 9.6 mg/dL (8.4-10.2); Carbon Dioxide 27 mmol/L (22-30); Chloride 102 mmol/L (98-107); Glucose 78 mg/dL (74-99); Lipase 109 U/L (23-300); Non-African American GFR(CKD) >90 (>60 ml/min/1.73 sqM); Sodium 137 mmol/L (137-145)
[2025-05-24 12:18] LABS: AST 468 U/L (14-36); Albumin 4.1 g/dL (3.5-5.0); Alkaline Phosphatase 110 U/L (38-126); Potassium 5.3 mmol/L (3.5-5.1); Total Protein 8.2 g/dL (6.3-8.2)
--- NOTE | 2025-05-24 13:23 | US ---
EXAMINATION TYPE: US gallbladder DATE OF EXAM: 05/24/2025 COMPARISON: CT 2011 CLINICAL INDICATION: Female, 34 years old with history of pain; Pain TECHNIQUE: Grayscale and color Doppler imaging of the right upper quadrant. FINDINGS: EXAM MEASUREMENTS: Liver Length: 18.8 cm Gallbladder Wall: 0.27 cm CBD: Obscured Right Kidney: 11.0 x 5.3 x 4.7 cm DANCER OR CHOREOGRAPHER NOTES: Exam is limited due to gas. Pancreas: Portions seen appear hyperechoic. Liver: *Appears very heterogeneous and enlarged with increased echogenicity. Gallbladder: Hyperechoic material seen within: 2.8 x 1.7 x 0.5 cm. Evidence for sonographic Vidal's sign: No CBD: Obscured Right Kidney: No hydronephrosis or masses seen IMPRESSION: 1. No evidence for acute abdominal process. 2. Hepatic steatosis. 3. Basilar sludge. [facility], , 05/24/2025 1:21 PM
[2025-05-24] MEDS: ACET/COD 300 MG/30 MG STARTER PACK TAB BTL PO STA (15:55)
[2025-05-24 15:57] VITALS: BP 106/68; PULSE 78; RESP 18; TEMP 97.8
[2025-05-26 17:17] LABS: HIV 2 AB Non-Reactive (Non-Reactive); HIV AB P24 Non-Reactive (Non-Reactive); HIV P24 AG Non-Reactive (Non-Reactive)
== END 2025-05-24 15:57 | disposition home or self-care (01) ==
LOC: EC 10:28
DX: R74.8 Abnormal levels of other serum enzymes (principal); K82.8 Other specified diseases of gallbladder
CPT/HCPCS: 36415; 80053; 82150; 83690; 85025; 81003; 81025; 87390; 76705; 99284; 96374; 96361; J2470

== ENCOUNTER → 2025-06-08 | Outpatient (CLI) | payer OTHER ==
[2025-06-08 15:39] VITALS: BP 136/86; PULSE 92; RESP 16; TEMP 98.2; BMI 46.3
--- NOTE | 2025-06-08 16:16 | P.HPBAR ---
Bariatric H&P - History & Physicial H&P Date: 06/08/25 History & Physicial: Visit/CC: Initial Patient initial contact: Initial weight: 124.284 kg Initial weight in pounds: 274.00 Height: 5 ft 4.5 in Initial BMI: 46.3 Last weight: Current weight: 124.284 kg Current weight in pounds: 274.00 Current BMI: 46.3 [place] body weight (based on NIH guidelines): 55.85 kg Excess body weight loss: 0.0% The patient is a 34 year-old F who presents for Bariatric Assessment. First seen. She is 274 pounds. She is looking into sleeve. SHe wants to be healthy. She has fatty liver disease and gallbladder. She has gallstones. Has not tried dieting. All family members have obesity. Highest weight is 306 pounds. Last year, was high. She lost weight due to gallbladder. Past Medical History Past Medical History: No Reported History History of Any Multi-Drug Resistant Organisms: None Reported Past Surgical History: Section Additional Past Surgical History / Comment(s): cyst on wrist, Past Anesthesia/Blood Transfusion Reactions: No Reported Reaction Smoking Status: Unknown if ever smoked - Past Family History Mother Family Medical History: Hypertension Sister(s) Family Medical History: Cancer, Diabetes Mellitus Additional Family Medical History / Comment(s): pt's nephew's sickle cell anemia, sister-breast CA Surgical - Exam Vital Signs Temp Pulse Resp BP 98.2 F 92 16 136/86 06/08/25 15:35 06/08/25 15:35 06/08/25 15:35 06/08/25 15:35 Bariatric Checklist Checklist: Plan: Checklist: EGD: 1. Hiatal hernia: 2. H. Pylori: HgbA1c: Vitamin D: Smoking: Current every day smoker Primary care physician referral: Victoriano Psychiatry clearance: Cardiology clearance: Sleep study: Diet journal: VTE risk score: VTE risk level: Rehab needs at discharge:
== END ==
LOC: BARWHC3 15:14
PROVIDERS: ATTEND Surgery Plastic and Reconstructive Surgery
DX: E66.01 Morbid (severe) obesity due to excess calories (principal); Z68.42 Body mass index [BMI] 45.0-49.9, adult
CPT/HCPCS: 99202

== ENCOUNTER → 2025-06-16 | Outpatient (CLI) | payer OTHER ==
[2025-06-16 14:57] LABS: INR 1.0 (<1.2); Partial Thromboplastin Time 24.8 sec (22.0-30.0); Prothrombin Time 10.9 sec (10.0-12.5)
[2025-06-16 19:06] LABS: HCT 39.7 % (37.2-46.3); HGB 12.8 g/dL (12.0-15.0); MCH 26.9 pg (27.0-32.0); MCHC 32.2 g/dL (32.0-37.0); MCV 83.6 FL (80.0-97.0); NRBC Per 100 WBC 0 X 10*3/uL (0.00-0.01); Platelet Count 378 X 10*3/uL (140-440); RBC 4.75 X 10*6/uL (4.10-5.20); RDW 14.0 % (11.5-14.5); WBC 7.53 X 10*3/uL (4.50-10.00)
[2025-06-16 20:29] LABS: Urine Alcohol Negative (Negative); Urine Barbiturate Negative (Negative)
[2025-06-16 20:37] LABS: Prealbumin 19.4 mg/dL (18.0-42.0)
[2025-06-16 20:59] LABS: BUN/Creat Ratio 13.11 Ratio (12.00-20.00); Blood Urea Nitrogen 11.8 mg/dL (9.0-27.0); Cholesterol 168.00 mg/dL (0.00-200.00); Glucose 81 mg/dL (70-110); HDL Cholesterol 41.50 mg/dL (40.00-60.00); Iron 96 UG/DL (50-170); LDL Cholesterol,Calculated 94.7 mg/dL (0.0-131.0); Magnesium 1.7 mg/dL (1.5-2.4); Total Iron Binding Capacity 340 UG/DL (228-460); Triglycerides 159.00 mg/dL (0.00-149.00); VLDL Calculation 31.80 mg/dL (5.00-40.00)
[2025-06-16 21:00] LABS: ALT 17 U/L (8-44); AST 20 U/L (13-35); Albumin 4.1 g/dL (3.8-4.9); Albumin/Globulin Ratio 1.41 Ratio (1.60-3.17); Alkaline Phosphatase 71 U/L (41-126); Anion Gap 10.00 mmol/L (4.00-12.00); Calcium 9.3 mg/dL (8.7-10.3); Carbon Dioxide 26.0 mmol/L (21.6-31.8); Chloride 103 mmol/L (96-109); Ferritin 164.0 ng/mL (10.0-291.0); Globulin 2.9 g/dL (1.6-3.3); Potassium 4.1 mmol/L (3.5-5.5); Sodium 139 mmol/L (135-145); Total Protein 7.0 g/dL (6.2-8.2); Vitamin B12 297.0 pg/mL (200.0-944.0)
[2025-06-17 09:39] LABS: Zinc, Serum 64 ug/dL (60-130)
== END | disposition home or self-care (01) ==
LOC: LABWHC1 14:10
PROVIDERS: ATTEND Surgery Plastic and Reconstructive Surgery
DX: E66.01 Morbid (severe) obesity due to excess calories (principal); E55.9 Vitamin D deficiency, unspecified; E89.1 Postprocedural hypoinsulinemia; E44.0 Moderate protein-calorie malnutrition; E45 Retarded development following protein-calorie malnutrition; D50.8 Other iron deficiency anemias; D50.9 Iron deficiency anemia, unspecified; K91.2 Postsurgical malabsorption, not elsewhere classified; K74.1 Hepatic sclerosis; K50.90 Crohn's disease, unspecified, without complications; N19 Unspecified kidney failure; T56.894A Toxic effect of other metals, undetermined, initial encounter
CPT/HCPCS: 84255; 84134; 84425; 80061; 80053; 82607; 82728; 82525; 82746; 83540; 83550; 83735; 84100; 84443; 84590; 84630; 85027; 85610; 85730; 82306; 80306; 83970; 83036; 93005; 36415; G0480; 80323